=== PATIENT | male | born 1980 | race American Indian/Alaskan Native ===

== ENCOUNTER 2018-09-14 06:14 | Inpatient (IN) | payer OTHER ==
[2018-09-14] MEDS ORDERED: NACL 0.9% 1000 ML 1,000 ML IV ONE (06:18)
--- NOTE | 2018-09-14 06:30 | Emergency Department Report ---
Blank Doc - Documentation Documentation: 37 year old -British male presents to the emergency room for abdominal pain 8 out of 10 times one day. Patient reports nausea vomiting and had one episode of loose stool in the last 24 hours. Patient reports that he has a history of hypertension and pancreatitis. Patient has not had any blood pressure medications in the last 2 weeks. He denies any fever or chills. GENERAL APPEARANCE: Well developed, well nourished, in no acute distress. SKIN: Inspection of the skin reveals no rashes, ulcerations or petechiae. HEENT: The sclerae were anicteric and conjunctivae were pink and moist. Extraocular movements were intact and pupils were equal, round, and reactive to light with normal accommodation. External inspection of the ears and nose showed no scars, lesions, or masses. Lips, teeth, and gums showed normal mucosa. The oral mucosa, hard and soft palate, tongue and posterior pharynx were normal. LUNGS: Auscultation of the lungs revealed normal breath sounds without any other adventitious sounds or rubs. CARDIOVASCULAR: There was a regular rate and rhythm without any murmurs, gallops, rubs. ABDOMEN: Soft tenderness to epigastric with normal bowel sounds. EXTREMITIES: No cyanosis, clubbing or edema. NEUROLOGIC: Alert and oriented x 3. Normal affect. Gait was normal. This initial assessment diagnostic orders/clinical plan/treatment(s) is/are subject to change based on patient's health status, clinical progression and re- assessment by fellow clinical providers in the ED. Further treatment and workup at subsequent clinical providers discretion. Patient/guardians urged not to elope from ED s their condition may be serious if not clinically assessed and managed. Initial orders include: Abdominal protocol, morphine, Zofran, CT of abdomen and pelvis w/contrast and normal saline 1 L.
[2018-09-14] MEDS ORDERED: MORPHINE IV ONE (06:31)
[2018-09-14] MEDS ORDERED: ZOFRAN IV ONE ×2 (06:31→10:25)
[2018-09-14 06:50] LABS: Basophils # (Auto) 0.1 K/mm3 (0.0-0.1); Basophils % (Auto) 0.4 % (0.0-1.8); Eosinophils % (Auto) 0.1 % (0.0-4.3); Hematocrit 52.4 % (35.5-45.6); Hemoglobin 17.4 gm/dl (11.8-15.2); Lymphocytes % (Auto) 6.9 % (13.4-35.0); Mean Corpuscular HGB Conc 33 % (32-34); Mean Corpuscular Volume 88 fl (84-94); Monocytes % (Auto) 6.3 % (0.0-7.3); Platelet Count 223 K/mm3 (140-440); Red Blood Count 5.99 M/mm3 (3.65-5.03); Red Cell Distribution Width 14.4 % (13.2-15.2)
[2018-09-14 07:04] LABS: Bilirubin,Urine NEG (Negative); Blood,Urine NEG (Negative); Color,Urine Yellow (Yellow); Mucus,Urine 1+ /HPF; Urobilinogen,Urine < 2.0 mg/dL (<2.0)
[2018-09-14 07:21] LABS: Alanine Aminotransferase 52 units/L (7-56); Albumin 4.7 g/dL (3.9-5); BUN/Creatinine Ratio 13; Blood Urea Nitrogen 16 mg/dL (9-20); Calcium 9.2 mg/dL (8.4-10.2); Hemolysis Index 12
--- NOTE | 2018-09-14 07:46 | Emergency Department Report ---
<WENDY HANDY - Last Filed: 09/14/18 11:40> ED Abdominal Pain HPI - General Chief Complaint: Abdominal Pain Stated Complaint: ABD PAIN Time Seen by Provider: 09/14/18 06:24 - Related Data Home Medications Medication Instructions Recorded Confirmed Last Taken Lisinopril [Zestril] 20 mg PO QDAY 06/08/18 09/14/18 Unknown Allergies Allergy/AdvReac Type Severity Reaction Status Date / Time No Known Allergies Allergy Verified 06/08/18 05:44 ED Past Medical Hx - Medications Home Medications: Home Medications Medication Instructions Recorded Confirmed Last Taken Type Lisinopril [Zestril] 20 mg PO QDAY 06/08/18 09/14/18 Unknown History ED Medical Decision Making - Lab Data Result diagrams: 09/14/18 06:43 09/14/18 06:39 - Medical Decision Making I also evaluated Mr. Zepeda alongside my colleague Valentina. Mr. Zepeda has alcoholic pancreatitis after imbibing this weekend. He drank 1/2 bottle of liquor. he denies alcoholism. He has had hx of recurrent pancreatitis "too many times". CT confirmed acute pancreatitis diagnosis as well as lipase > 5 times normal limits. Elevated WBC evident. I recommended hospital admission. admitted to hospitalist service med/surg in stable condition ED Disposition Clinical Impression: Acute pancreatitis Qualifiers: Pancreatitis type: alcohol induced Disposition: OP ADMIT IP TO THIS HOSP Condition: Stable <SHARIF MCKENZIE - Last Filed: 09/14/18 18:43> ED Abdominal Pain HPI - General Source: patient Mode of arrival: Ambulatory Limitations: No Limitations - History of Present Illness Initial Comments: This is 37-year-old male with a history of hypertension and noncompliant with his medication present. Generalized abdominal pain with no radiation that started yesterday. Patient states that she eat any unusual foods. He denies fever assess chills/chest pain/dizziness or headache MD Complaint: abdominal pain -: Sudden Location: diffuse Radiation: none Migration to: no migration Severity: moderate Severity scale (0 -10): 5 Quality: aching Consistency: intermittent Improves With: nothing Worsens With: nothing Context: possible food poisoning Associated Symptoms: nausea, vomiting, diarrhea (1 episode) ED Review of Systems ROS: Stated complaint: ABD PAIN Other details as noted in HPI Comment: All other systems reviewed and negative ED Past Medical Hx - Past Medical History Previous Medical History?: Yes Hx Hypertension: Yes Additional medical history: pancreatitis. afib - Surgical History Past Surgical History?: No - Social History Smoking Status: Never Smoker ED Physical Exam - General Limitations: No Limitations General appearance: alert, in no apparent distress - Head Head exam: Present: atraumatic, normocephalic - Eye Eye exam: Present: normal appearance - ENT ENT exam: Present: mucous membranes moist - Neck Neck exam: Present: normal inspection - Respiratory Respiratory exam: Present: normal lung sounds bilaterally. Absent: respiratory distress - Cardiovascular Cardiovascular Exam: Present: regular rate, normal rhythm. Absent: systolic murmur, diastolic murmur, rubs, gallop - GI/Abdominal GI/Abdominal exam: Present: soft, normal bowel sounds. Absent: distended, tenderness, guarding, rebound - Rectal Rectal exam: Present: deferred - Extremities Exam Extremities exam: Present: normal inspection, full ROM - Back Exam Back exam: Present: normal inspection - Neurological Exam Neurological exam: Present: alert, oriented X3 - Psychiatric Psychiatric exam: Present: normal affect, normal mood - Skin Skin exam: Present: warm, dry, intact, normal color. Absent: rash ED Course Vital Signs 09/14/18 09/14/18 09/14/18 06:16 09:30 11:42 Temperature 98.9 F 98.4 F Pulse Rate 102 H 86 Respiratory 18 18 18 Rate Blood Pressure 150/103 141/89 [Right] O2 Sat by Pulse 96 99 96 Oximetry - Reevaluation(s) Reevaluation #1: 09/14/18 07:45 Patient is currently on 1 L of fluids, received 4 mg morphine and Zofran. Patient is laying down comfortably in the ED bed. He is in no acute distress CT scan pending ED Medical Decision Making - Lab Data Result diagrams: 09/14/18 06:43 09/14/18 06:39 Laboratory Last Values WBC 15.1 K/mm3 (4.5-11.0) H 09/14/18 06:43 RBC 5.99 M/mm3 (3.65-5.03) H 09/14/18 06:43 Hgb 17.4 gm/dl (11.8-15.2) H 09/14/18 06:43 Hct 52.4 % (35.5-45.6) H 09/14/18 06:43 MCV 88 fl (84-94) 09/14/18 06:43 MCH 29 pg (28-32) 09/14/18 06:43 MCHC 33 % (32-34) 09/14/18 06:43 RDW 14.4 % (13.2-15.2) 09/14/18 06:43 Plt Count 223 K/mm3 (140-440) 09/14/18 06:43 Lymph % (Auto) 6.9 % (13.4-35.0) L 09/14/18 06:43 [place] % (Auto) 6.3 % (0.0-7.3) 09/14/18 06:43 Eos % (Auto) 0.1 % (0.0-4.3) 09/14/18 06:43 Baso % (Auto) 0.4 % (0.0-1.8) 09/14/18 06:43 Lymph # 1.0 K/mm3 (1.2-5.4) L 09/14/18 06:43 [place] # 1.0 K/mm3 (0.0-0.8) H 09/14/18 06:43 Eos # 0.0 K/mm3 (0.0-0.4) 09/14/18 06:43 Baso # 0.1 K/mm3 (0.0-0.1) 09/14/18 06:43 Seg Neutrophils % 86.3 % (40.0-70.0) H 09/14/18 06:43 Seg Neutrophils # 13.0 K/mm3 (1.8-7.7) H 09/14/18 06:43 Sodium 139 mmol/L (137-145) 09/14/18 06:39 Potassium 3.8 mmol/L (3.6-5.0) 09/14/18 06:39 Chloride 98.9 mmol/L (98-107) 09/14/18 06:39 Carbon Dioxide 27 mmol/L (22-30) 09/14/18 06:39 Anion Gap 17 mmol/L 09/14/18 06:39 BUN 16 mg/dL (9-20) 09/14/18 06:39 Creatinine 1.2 mg/dL (0.8-1.5) 09/14/18 06:39 Estimated GFR > 60 ml/min 09/14/18 06:39 BUN/Creatinine Ratio 13 % 09/14/18 06:39 Glucose 155 mg/dL (75-100) H 09/14/18 06:39 Calcium 9.2 mg/dL (8.4-10.2) 09/14/18 06:39 Total Bilirubin 1.10 mg/dL (0.1-1.2) 09/14/18 06:39 AST 33 units/L (5-40) 09/14/18 06:39 ALT 52 units/L (7-56) 09/14/18 06:39 Alkaline Phosphatase 59 units/L (35-129) 09/14/18 06:39 Total Protein 7.7 g/dL (6.3-8.2) 09/14/18 06:39 Albumin 4.7 g/dL (3.9-5) 09/14/18 06:39 Albumin/Globulin Ratio 1.6 % 09/14/18 06:39 Lipase 479 units/L (13-60) H 09/14/18 06:39 Urine Color Yellow (Yellow) 09/14/18 06:55 Urine Turbidity Clear (Clear) 09/14/18 06:55 Urine pH 6.0 (5.0-7.0) 09/14/18 06:55 Ur Specific [place] 1.034 (1.003-1.030) H 09/14/18 06:55 Urine Protein 30 mg/dl mg/dL (Negative) 09/14/18 06:55 Urine Glucose (UA) Neg mg/dL (Negative) 09/14/18 06:55 Urine Ketones Tr mg/dL (Negative) 09/14/18 06:55 Urine Blood Neg (Negative) 09/14/18 06:55 Urine Nitrite Neg (Negative) 09/14/18 06:55 Urine Bilirubin Neg (Negative) 09/14/18 06:55 Urine Urobilinogen < 2.0 mg/dL (<2.0) 09/14/18 06:55 Ur Leukocyte Esterase Neg (Negative) 09/14/18 06:55 Urine WBC (Auto) 2.0 /HPF (0.0-6.0) 09/14/18 06:55 Urine RBC (Auto) 1.0 /HPF (0.0-6.0) 09/14/18 06:55 U Epithel Cells (Auto) < 1.0 /HPF (0-13.0) 09/14/18 06:55 Urine Mucus 1+ /HPF 09/14/18 06:55 - Radiology Data Radiology results: report reviewed, image reviewed FINDINGS: Lung bases: Normal. Liver: Mild diffuse fatty infiltration is noted throughout the liver. No enlargement or focal mass. Biliary system: Normal. Pancreas: Moderate inflammatory changes and mild fluid surrounds the pancreas consistent with acute pancreatitis. There is no obvious pancreatic mass or pseudocyst. Spleen: Normal. Kidneys/ureters/bladder: The kidneys are normal size, contour and position. There appeared to be 2 punctate stones in the mid to superior left kidney. 2 tiny millimetric cysts are noted in the right kidney. The ureters and bladder are unremarkable. Adrenal glands: Normal. Aorta: Normal. Intestines: Within normal limits given no oral contrast was administered. Appendix: Normal. Pelvic viscera: Normal. Ascites: Small peripancreatic fluid. Adenopathy: None. Musculoskeletal: Normal. IMPRESSION: Acute pancreatitis. Mild fatty infiltration of the liver. Tiny left renal stones, nonobstructing. Transcribed By: TTR Dictated By: MARGARET DOHERTY JR, MD Electronically Authenticated By: MARGARET DOHERTY JR, MD Signed Date/Time: 09/14/18 1106 Critical care attestation.: If time is entered above; I have spent that time in minutes in the direct care of this critically ill patient, excluding procedure time. ED Disposition Is pt being admited?: No Does the pt Need Aspirin: No
[2018-09-14] MEDS ORDERED: TORADOL IV ONE (10:09)
[2018-09-14] MEDS ORDERED: ZOFRAN IV NR (11:00)
--- NOTE | 2018-09-14 11:10 | Cat Scan Report ---
CT ABDOMEN PELVIS WITH CONTRAST: HISTORY: Abdominal pain, right upper quadrant pain, epigastric pain. COMPARISON: Noncontrast CT of abdomen and pelvis dated 06/08/18. TECHNIQUE: Helical CT in 1.25mm intervals following IV contrast. Sagittal and coronal reconstructions. FINDINGS: Lung bases: Normal. Liver: Mild diffuse fatty infiltration is noted throughout the liver. No enlargement or focal mass. Biliary system: Normal. Pancreas: Moderate inflammatory changes and mild fluid surrounds the pancreas consistent with acute pancreatitis. There is no obvious pancreatic mass or pseudocyst. Spleen: Normal. Kidneys/ureters/bladder: The kidneys are normal size, contour and position. There appeared to be 2 punctate stones in the mid to superior left kidney. 2 tiny millimetric cysts are noted in the right kidney. The ureters and bladder are unremarkable. Adrenal glands: Normal. Aorta: Normal. Intestines: Within normal limits given no oral contrast was administered. Appendix: Normal. Pelvic viscera: Normal. Ascites: Small peripancreatic fluid. Adenopathy: None. Musculoskeletal: Normal. IMPRESSION: Acute pancreatitis. Mild fatty infiltration of the liver. Tiny left renal stones, nonobstructing.
[2018-09-14 11:55] LABS: Bilirubin,Direct 0.3 mg/dL (0-0.2)
[2018-09-14] MEDS ORDERED: D5LR 1,000 ML IV SCH (12:00)
--- NOTE | 2018-09-14 14:28 | History and Physical Report ---
History of Present Illness Date of examination: 09/14/18 Date of admission: 09/14/18 11:37 Chief complaint: Abdominal pain since last night History of present illness: 37-year-old -[place] male with history of hypertension, hyperlipidemia and recurrent pancreatitis comes in for epigastric pain and vomiting since yesterday. Vomiting and pain started around 9 PM. Vomiting about 5 times. Last episode of vomiting was 3-4 hours ago. Abdominal pain is localized to the epigastric region and sharp in nature and intermittent. Pain is 8 on a scale of 1-10. Patient has 5 shots of vodka and 3 Motrins yesterday. Patient had 2 episodes of pancreatitis. One episode was in January 2018. And the second episode was in March 2018. This is the third episode. No fever or chills. No recent travel. Past Medical History Previous Medical History?: Yes Hypertension: Yes Recurrent Pancreatitis A Fib---Converted to NSR Surgical History Past Surgical History?: No Social History Smoking Status: Never Smoker Family history Htn Medications Home Medications: Home Medications Medication Instructions Recorded Confirmed Last Taken Type Aspirin [Adult Aspirin Regimen] 81 mg PO DAILY 06/08/18 06/08/18 Unknown History AtorvaSTATin [Lipitor] 40 mg PO QHS 06/08/18 06/08/18 Unknown History Diltiazem HCl [Cardizem LA] 180 mg PO DAILY 06/08/18 06/08/18 Unknown History Folic Acid [Folvite] 1 mg PO QDAY 06/08/18 06/08/18 Unknown History Lisinopril [Zestril] 20 mg PO QDAY 06/08/18 06/08/18 Unknown History oxyCODONE [Roxicodone TAB] 10 mg PO Q6H PRN #16 tablet 06/08/18 Unknown Rx Medications and Allergies Allergies Allergy/AdvReac Type Severity Reaction Status Date / Time No Known Allergies Allergy Verified 06/08/18 05:44 Home Medications Medication Instructions Recorded Confirmed Last Taken Type Lisinopril [Zestril] 20 mg PO QDAY 06/08/18 09/14/18 Unknown History Active Meds: Active Medications Dextrose/Lactated Ringer's (D5lr) 1,000 mls @ 150 mls/hr IV DIRECT AMBER Review of Systems All systems: negative Constitutional: no weight loss, no weight gain, no fever, no chills, no sweats, no night sweats Ears, nose, mouth and throat: no ear pain, no ear discharge, no tinnitis, no dec reased hearing, no nose pain Cardiovascular: no chest pain, no orthopnea, no palpitations, no rapid/irregular heart beat, no edema, no syncope, no lightheadedness, no shortness of breath Respiratory: no cough, no cough with sputum, no excessive sputum, no hemoptysis, no shortness of breath, no dyspnea on exertion Gastrointestinal: abdominal pain, nausea, vomiting, no diarrhea, no constipation, no change in bowel habits, no hematemesis, no coffee ground emesis, no BRBPR, no melena, no hematochezia, no loss of appetite, no early satiety, no heartburn, no indigestion, no belching Genitourinary Male: no dysuria, no hematuria, no flank pain, no discharge, no urinary frequency, no urinary hesitancy, no nocturia, no incontinence, no erectile dysfunction, no genital pain Musculoskeletal: no neck stiffness, no neck pain, no shooting arm pain, no arm numbness/tingling, no low back pain, no shooting leg pain, no leg numbness/tingling, no redness of joints Integumentary: no rash, no pruritis, no redness, no sores, no wounds, no jaundice, no boils, no blisters Neurological: no head injury, no transient paralysis, no paralysis, no weakness, no parathesias, no numbness, no tingling, no seizures, no syncope, no tremors, n o ataxia, no lack of coordination Psychiatric: no anxiety, no memory loss, no change in sleep habits, no sleep disturbances, no insomnia, no hypersomnia, no change in appetite, no change in libido, no suicidal ideation, no disorientation, no hallucinations Endocrine: no cold intolerance, no heat intolerance, no polyphagia, no excessive thirst, no polydipsia, no polyuria, no nocturia, no excessive sweating, no flushing, no weight change Hematologic/Lymphatic: no easy bruising, no easy bleeding Allergic/Immunologic: no urticaria, no allergic rhinitis, no wheezing Exam - Constitutional Vitals: Temp Pulse Resp BP Pulse Ox 98.4 F 86 18 141/89 96 09/14/18 11:42 09/14/18 11:42 09/14/18 11:42 09/14/18 11:42 09/14/18 11:42 General appearance: Present: no acute distress, well-nourished - EENT Eyes: Present: PERRL ENT: hearing intact, clear oral mucosa - Neck Neck: Present: supple, normal ROM - Respiratory Respiratory effort: normal Respiratory: bilateral: CTA - Cardiovascular Heart rate: 78 Rhythm: regular Heart Sounds: Present: S1 & S2. Absent: rub, click - Extremities Extremities: no ischemia, pulses intact, pulses symmetrical, No edema Peripheral Pulses: within normal limits - Abdominal General gastrointestinal: Present: soft, non-tender, non-distended, normal bowel sounds Localized gastrointestinal: tender: diffuse (No guarding No rebound) Male genitourinary: Present: normal, tender - Rectal Rectal Exam: deferred - Integumentary Integumentary: Present: clear, warm, dry - Musculoskeletal Musculoskeletal: gait normal, strength equal bilaterally - Psychiatric Psychiatric: appropriate mood/affect, intact judgment & insight - Neurologic Neurologic: CNII-XII intact, moves all extremities - Allied Health Allied health notes reviewed: nursing, case management Results - Labs CBC & Chem 7: 09/14/18 06:43 09/14/18 06:39 Labs: Laboratory Last Values WBC 15.1 K/mm3 (4.5-11.0) H 09/14/18 06:43 RBC 5.99 M/mm3 (3.65-5.03) H 09/14/18 06:43 Hgb 17.4 gm/dl (11.8-15.2) H 09/14/18 06:43 Hct 52.4 % (35.5-45.6) H 09/14/18 06:43 MCV 88 fl (84-94) 09/14/18 06:43 MCH 29 pg (28-32) 09/14/18 06:43 MCHC 33 % (32-34) 09/14/18 06:43 RDW 14.4 % (13.2-15.2) 09/14/18 06:43 Plt Count 223 K/mm3 (140-440) 09/14/18 06:43 Lymph % (Auto) 6.9 % (13.4-35.0) L 09/14/18 06:43 [place] % (Auto) 6.3 % (0.0-7.3) 09/14/18 06:43 Eos % (Auto) 0.1 % (0.0-4.3) 09/14/18 06:43 Baso % (Auto) 0.4 % (0.0-1.8) 09/14/18 06:43 Lymph # 1.0 K/mm3 (1.2-5.4) L 09/14/18 06:43 [place] # 1.0 K/mm3 (0.0-0.8) H 09/14/18 06:43 Eos # 0.0 K/mm3 (0.0-0.4) 09/14/18 06:43 Baso # 0.1 K/mm3 (0.0-0.1) 09/14/18 06:43 Seg Neutrophils % 86.3 % (40.0-70.0) H 09/14/18 06:43 Seg Neutrophils # 13.0 K/mm3 (1.8-7.7) H 09/14/18 06:43 Sodium 139 mmol/L (137-145) 09/14/18 06:39 Potassium 3.8 mmol/L (3.6-5.0) 09/14/18 06:39 Chloride 98.9 mmol/L (98-107) 09/14/18 06:39 Carbon Dioxide 27 mmol/L (22-30) 09/14/18 06:39 Anion Gap 17 mmol/L 09/14/18 06:39 BUN 16 mg/dL (9-20) 09/14/18 06:39 Creatinine 1.2 mg/dL (0.8-1.5) 09/14/18 06:39 Estimated GFR > 60 ml/min 09/14/18 06:39 BUN/Creatinine Ratio 13 % 09/14/18 06:39 Glucose 155 mg/dL (75-100) H 09/14/18 06:39 Calcium 9.2 mg/dL (8.4-10.2) 09/14/18 06:39 Total Bilirubin 1.10 mg/dL (0.1-1.2) 09/14/18 06:39 Direct Bilirubin 0.3 mg/dL (0-0.2) H 09/14/18 06:39 AST 33 units/L (5-40) 09/14/18 06:39 ALT 52 units/L (7-56) 09/14/18 06:39 Alkaline Phosphatase 59 units/L (35-129) 09/14/18 06:39 Total Protein 7.7 g/dL (6.3-8.2) 09/14/18 06:39 Albumin 4.7 g/dL (3.9-5) 09/14/18 06:39 Albumin/Globulin Ratio 1.6 % 09/14/18 06:39 Amylase 243 units/L (27-131) H 09/14/18 06:39 Lipase 479 units/L (13-60) H 09/14/18 06:39 Urine Color Yellow (Yellow) 09/14/18 06:55 Urine Turbidity Clear (Clear) 09/14/18 06:55 Urine pH 6.0 (5.0-7.0) 09/14/18 06:55 Ur Specific [place] 1.034 (1.003-1.030) H 09/14/18 06:55 Urine Protein 30 mg/dl mg/dL (Negative) 09/14/18 06:55 Urine Glucose (UA) Neg mg/dL (Negative) 09/14/18 06:55 Urine Ketones Tr mg/dL (Negative) 09/14/18 06:55 Urine Blood Neg (Negative) 09/14/18 06:55 Urine Nitrite Neg (Negative) 09/14/18 06:55 Urine Bilirubin Neg (Negative) 09/14/18 06:55 Urine Urobilinogen < 2.0 mg/dL (<2.0) 09/14/18 06:55 Ur Leukocyte Esterase Neg (Negative) 09/14/18 06:55 Urine WBC (Auto) 2.0 /HPF (0.0-6.0) 09/14/18 06:55 Urine RBC (Auto) 1.0 /HPF (0.0-6.0) 09/14/18 06:55 U Epithel Cells (Auto) < 1.0 /HPF (0-13.0) 09/14/18 06:55 Urine Mucus 1+ /HPF 09/14/18 06:55 Short CBC 09/14/18 Range/Units 06:43 WBC 15.1 H (4.5-11.0) K/mm3 Hgb 17.4 H (11.8-15.2) gm/dl Hct 52.4 H (35.5-45.6) % Plt Count 223 (140-440) K/mm3 BMP 09/14/18 06:39 Sodium 139 Potassium 3.8 Chloride 98.9 Carbon Dioxide 27 BUN 16 Creatinine 1.2 Glucose 155 H Calcium 9.2 Liver Function 09/14/18 09/14/18 Range/Units 06:39 06:39 Total Bilirubin 1.10 (0.1-1.2) mg/dL Direct Bilirubin 0.3 H (0-0.2) mg/dL AST 33 (5-40) units/L ALT 52 (7-56) units/L Alkaline Phosphatase 59 (35-129) units/L Albumin 4.7 (3.9-5) g/dL Urine 09/14/18 Range/Units 06:55 Urine Color Yellow (Yellow) Urine pH 6.0 (5.0-7.0) Ur Specific [place] 1.034 H (1.003-1.030) Urine Protein 30 mg/dl (Negative) mg/dL Urine Glucose (UA) Neg (Negative) mg/dL - Imaging and Cardiology CT scan - abdomen: report reviewed Imaging and Cardiology: CT Abdomen Pancreas: Moderate inflammatory changes and mild fluid surrounds the pancreas consistent with acute pancreatitis. There is no obvious pancreatic mass or pseudocyst. IMPRESSION: Acute pancreatitis. Mild fatty infiltration of the liver. Tiny left renal stones, nonobstructing. Assessment and Plan Advance Directives: Yes (Full code) VTE prophylaxis?: Chemical Plan of care discussed with patient/family: Yes - Patient Problems (1) Acute pancreatitis Current Visit: Yes Status: Acute Qualifiers: Pancreatitis type: alcohol induced Plan to address problem: NPo IV Fluids Amylase /Lipase Stop ETOH from now on Counselled TPN after 48 to 72 hrs Recurrent pancreatitis (2) EtOH dependence Current Visit: Yes Status: Chronic Qualifiers: Substance use status: uncomplicated Qualified Code(s): F10.20 - Alcohol dependence, uncomplicated Plan to address problem: CIWA protocol initiated (3) HTN (hypertension) Current Visit: Yes Status: Chronic Qualifiers: Hypertension type: essential hypertension Qualified Code(s): I10 - Essential (primary) hypertension Plan to address problem: Hold oral antihypertensives Catapress TTS patch initiated (4) HLD (hyperlipidemia) Current Visit: Yes Status: Chronic Qualifiers: Hyperlipidemia type: mixed hyperlipidemia Qualified Code(s): E78.2 - Mixed hyperlipidemia Plan to address problem: Hold statins for now (5) Polycythemia due to fall in plasma volume Current Visit: Yes Status: Acute Plan to address problem: IV fluids for now (6) DVT prophylaxis Current Visit: Yes Status: Acute Plan to address problem: On Lovenox and GI prophylaxis
[2018-09-14] MEDS ORDERED: NACL 0.9% 1000 ML IV ONE (14:48)
[2018-09-14] MEDS ORDERED: NACL 0.9% 1000 ML 1,000 ML ONE (14:53)
[2018-09-14] MEDS ORDERED: TYLENOL PO PRN (16:17)
[2018-09-14] MEDS ORDERED: PHENERGAN PR PRN (16:17)
[2018-09-14] MEDS ORDERED: REGLAN IV PRN (16:17)
[2018-09-14] MEDS ORDERED: ATIVAN IV PRN ×2 (17:16)
[2018-09-14] MEDS: ZOFRAN IV PRN ×2 (18:44→22:10)
[2018-09-14] MEDS: DILAUDID IV PRN ×2 (18:44→22:10)
[2018-09-14] MEDS: D5NS 1,000 ML IV SCH (22:10)
[2018-09-14] MEDS: SODIUM CHLORIDE FLUSH SYRINGE 10 ML IV SCH (22:10)
[2018-09-14] MEDS: LOVENOX SUB-Q SCH (22:10)
[2018-09-14] MEDS: PEPCID IV SCH (22:10)
[2018-09-15] MEDS: ZOFRAN IV PRN (02:15)
[2018-09-15] MEDS: DILAUDID IV PRN ×4 (02:16→20:49)
[2018-09-15] MEDS: D5NS 1,000 ML IV SCH ×3 (05:05→19:11)
[2018-09-15 05:42] LABS: Basophils % (Auto) 0.4 % (0.0-1.8); Eosinophils # (Auto) 0.1 K/mm3 (0.0-0.4); Eosinophils % (Auto) 1.3 % (0.0-4.3); Hematocrit 47.7 % (35.5-45.6); Hemoglobin 15.9 gm/dl (11.8-15.2); Lymphocytes # (Auto) 1.8 K/mm3 (1.2-5.4); Mean Corpuscular HGB Conc 33 % (32-34); Mean Corpuscular Volume 88 fl (84-94); Monocytes # (Auto) 0.8 K/mm3 (0.0-0.8); Monocytes % (Auto) 7.4 % (0.0-7.3); Platelet Count 203 K/mm3 (140-440); Red Cell Distribution Width 14.5 % (13.2-15.2)
[2018-09-15 06:04] LABS: Alanine Aminotransferase 29 units/L (7-56); BUN/Creatinine Ratio 9; Blood Urea Nitrogen 9 mg/dL (9-20); Calcium 8.4 mg/dL (8.4-10.2); Hemolysis Index 10
[2018-09-15] MEDS: SODIUM CHLORIDE FLUSH SYRINGE 10 ML IV SCH ×2 (10:33→21:20)
[2018-09-15] MEDS: PEPCID IV SCH ×2 (10:33→21:19)
--- NOTE | 2018-09-15 14:42 | Progress Note ---
Assessment and Plan Assessment and plan: 37-year-old -[place] male with history of hypertension, hyperlipidemia and recurrent pancreatitis comes in for epigastric pain and vomiting since the day prior to admission. Vomiting and pain started around 9 PM. Vomiting about 5 times. Last episode of vomiting was 3-4 hours ago. Abdominal pain is localized to the epigastric region and sharp in nature and intermittent. Pain is 8 on a scale of 1-10. Patient has 5 shots of vodka and 3 Motrins yesterday. Patient had 2 episodes of pancreatitis. One episode was in January 2018. And the second episode was in March 2018. This is the third episode. No fever or chills. No recent travel. Patient reports weekend alcohol binge. Denies any withdrawal symptoms if no use of alcohol CT Abdomen: IMPRESSION: Acute pancreatitis. Mild fatty infiltration of the liver. Tiny left renal stones, nonobstructing. Assessment Acute pancreatitis secondary to EtOH abuse EtOH use disorder Hypertension Hyperlipidemia pOLYCYTHEMIA Leukocytosis Plan Continue nothing by mouth for additional day Attempt clear liquids in a.m. Doubt gallstone contribution to this recurrent episode consistent with alcohol use Pain control Extensive counseling provided to the patient will need to quit alcohol use patient verbalized understanding 15 minutes spent on counseling Anticipated discharge instructions 24 to 48 hours DVT and GI prophylaxis Plan of care discussed with the patient in detail History Interval history: Patient seen and examined, still with abdominal pain, not tolerating PO at this time. Hospitalist Physical - Physical exam Narrative exam: VITAL SIGNS: Reviewed. GENERAL: The patient appeared well nourished and normally developed, Vital signs as documented. HEAD: No signs of head trauma. EYES: Pupils are equal. Extraocular motions intact. EARS: Hearing grossly intact. MOUTH: Oropharynx is normal. NECK: No adenopathy, no JVD. CHEST: Chest with clear breath sounds bilaterally. No wheezes, rales, or rhonchi. CARDIAC: Regular rate and rhythm. S1 and S2, without murmurs, gallops, or rubs. VASCULAR: No Edema. Peripheral pulses normal and equal in all extremities. ABDOMEN: Soft, generalized tenderness and non distended. No rebound or guarding, and no masses palpated. Bowel Sounds normal. MUSCULOSKELETAL: Good range of motion of all major joints. Extremities without clubbing, cyanosis or edema. NEUROLOGIC EXAM: Alert and oriented x 3 No focal sensory or strength deficits. Speech normal. Follows commands. PSYCHIATRIC: Mood normal. SKIN: No rash or lesions. - Constitutional Vitals: Temp Pulse Resp BP Pulse Ox 98.2 F 74 16 143/94 97 09/15/18 05:02 09/15/18 05:02 09/15/18 09:26 09/15/18 05:02 09/15/18 05:02 General appearance: Present: no acute distress, well-nourished Results - Labs CBC & Chem 7: 09/15/18 04:19 09/15/18 04:19 Labs: Laboratory Last Values WBC 10.4 K/mm3 (4.5-11.0) 09/15/18 04:19 RBC 5.40 M/mm3 (3.65-5.03) H 09/15/18 04:19 Hgb 15.9 gm/dl (11.8-15.2) H 09/15/18 04:19 Hct 47.7 % (35.5-45.6) H 09/15/18 04:19 MCV 88 fl (84-94) 09/15/18 04:19 MCH 29 pg (28-32) 09/15/18 04:19 MCHC 33 % (32-34) 09/15/18 04:19 RDW 14.5 % (13.2-15.2) 09/15/18 04:19 Plt Count 203 K/mm3 (140-440) 09/15/18 04:19 Lymph % (Auto) 17.0 % (13.4-35.0) 09/15/18 04:19 [place] % (Auto) 7.4 % (0.0-7.3) H 09/15/18 04:19 Eos % (Auto) 1.3 % (0.0-4.3) 09/15/18 04:19 Baso % (Auto) 0.4 % (0.0-1.8) 09/15/18 04:19 Lymph # 1.8 K/mm3 (1.2-5.4) 09/15/18 04:19 [place] # 0.8 K/mm3 (0.0-0.8) 09/15/18 04:19 Eos # 0.1 K/mm3 (0.0-0.4) 09/15/18 04:19 Baso # 0.0 K/mm3 (0.0-0.1) 09/15/18 04:19 Seg Neutrophils % 73.9 % (40.0-70.0) H 09/15/18 04:19 Seg Neutrophils # 7.7 K/mm3 (1.8-7.7) 09/15/18 04:19 Sodium 138 mmol/L (137-145) 09/15/18 04:19 Potassium 3.7 mmol/L (3.6-5.0) 09/15/18 04:19 Chloride 97.7 mmol/L (98-107) L 09/15/18 04:19 Carbon Dioxide 28 mmol/L (22-30) 09/15/18 04:19 Anion Gap 16 mmol/L 09/15/18 04:19 BUN 9 mg/dL (9-20) 09/15/18 04:19 Creatinine 1.0 mg/dL (0.8-1.5) 09/15/18 04:19 Estimated GFR > 60 ml/min 09/15/18 04:19 BUN/Creatinine Ratio 9 % 09/15/18 04:19 Glucose 119 mg/dL (75-100) H 09/15/18 04:19 Hemoglobin A1c 6.1 % (4-6) H 09/14/18 19:28 Calcium 8.4 mg/dL (8.4-10.2) 09/15/18 04:19 Total Bilirubin 0.80 mg/dL (0.1-1.2) 09/15/18 04:19 Direct Bilirubin 0.3 mg/dL (0-0.2) H 09/14/18 06:39 AST 16 units/L (5-40) 09/15/18 04:19 ALT 29 units/L (7-56) 09/15/18 04:19 Alkaline Phosphatase 50 units/L (35-129) 09/15/18 04:19 Total Protein 7.0 g/dL (6.3-8.2) 09/15/18 04:19 Albumin 4.0 g/dL (3.9-5) 09/15/18 04:19 Albumin/Globulin Ratio 1.3 % 09/15/18 04:19 Amylase 168 units/L (27-131) H 09/15/18 04:19 Lipase 389 units/L (13-60) H 09/15/18 04:19 Urine Color Yellow (Yellow) 09/14/18 06:55 Urine Turbidity Clear (Clear) 09/14/18 06:55 Urine pH 6.0 (5.0-7.0) 09/14/18 06:55 Ur Specific [place] 1.034 (1.003-1.030) H 09/14/18 06:55 Urine Protein 30 mg/dl mg/dL (Negative) 09/14/18 06:55 Urine Glucose (UA) Neg mg/dL (Negative) 09/14/18 06:55 Urine Ketones Tr mg/dL (Negative) 09/14/18 06:55 Urine Blood Neg (Negative) 09/14/18 06:55 Urine Nitrite Neg (Negative) 09/14/18 06:55 Urine Bilirubin Neg (Negative) 09/14/18 06:55 Urine Urobilinogen < 2.0 mg/dL (<2.0) 09/14/18 06:55 Ur Leukocyte Esterase Neg (Negative) 09/14/18 06:55 Urine WBC (Auto) 2.0 /HPF (0.0-6.0) 09/14/18 06:55 Urine RBC (Auto) 1.0 /HPF (0.0-6.0) 09/14/18 06:55 U Epithel Cells (Auto) < 1.0 /HPF (0-13.0) 09/14/18 06:55 Urine Mucus 1+ /HPF 09/14/18 06:55 Active Medications - Current Medications Current Medications: Generic Name Dose Route Start Last Admin Trade Name Freq PRN Reason Stop Dose Admin Acetaminophen 650 mg 09/14/18 16:17 Tylenol PO Q4H PRN Pain MILD(1-3)/Fever >100.5/PENALOZA Clonidine HCl 0.2 mg 09/21/18 10:00 Catapres-Tts Patch TD QWEEK AMBER Enoxaparin Sodium 40 mg 09/14/18 22:00 09/14/18 22:10 Lovenox SUB-Q 40 mg QDAY@2200 AMBER Administration Famotidine 20 mg 09/14/18 22:00 09/15/18 10:33 Pepcid IV 20 mg BID AMBER Administration Hydromorphone HCl 1 mg 09/15/18 11:53 Dilaudid IV Q3H PRN Pain , Severe (7-10) Dextrose/Sodium Chloride 1,000 mls @ 100 mls/hr 09/14/18 17:00 09/15/18 12:17 D5ns IV 100 mls/hr DIRECT AMBER Administration Lorazepam 2 mg 09/14/18 17:16 Ativan IV Q1H PRN CIWA-Ar 8-15 Lorazepam 4 mg 09/14/18 17:16 Ativan IV Q1H PRN CIWA-Ar 16-25 Metoclopramide HCl 10 mg 09/14/18 16:17 Reglan IV Q6H PRN Nausea And Vomiting Ondansetron HCl 4 mg 09/14/18 16:17 09/15/18 02:15 Zofran IV 4 mg Q3H PRN Administration Nausea And Vomiting Promethazine HCl 25 mg 09/14/18 16:17 Phenergan GA Q6H PRN N/V IF NPO AND NO IV ACCESS Sodium Chloride 10 ml 09/14/18 22:00 09/15/18 10:33 Sodium Chloride Flush Syringe 10 Ml IV 10 ml BID AMBER Administration Sodium Chloride 10 ml 09/14/18 16:17 Sodium Chloride Flush Syringe 10 Ml IV PRN PRN LINE FLUSH
[2018-09-15] MEDS: SODIUM CHLORIDE FLUSH SYRINGE 10 ML IV PRN (20:50)
[2018-09-15] MEDS: LOVENOX SUB-Q SCH (21:19)
[2018-09-16] MEDS: SODIUM CHLORIDE FLUSH SYRINGE 10 ML IV PRN (01:59)
[2018-09-16] MEDS: DILAUDID IV PRN ×2 (02:00→08:08)
[2018-09-16] MEDS: D5NS 1,000 ML IV SCH (05:15)
[2018-09-16 07:14] LABS: Alanine Aminotransferase 24 units/L (7-56); Albumin 3.8 g/dL (3.9-5); BUN/Creatinine Ratio 7; Blood Urea Nitrogen 6 mg/dL (9-20); Calcium 8.5 mg/dL (8.4-10.2); Hemolysis Index 15
[2018-09-16] MEDS: SODIUM CHLORIDE FLUSH SYRINGE 10 ML IV SCH (11:03)
[2018-09-16] MEDS: PEPCID IV SCH (11:03)
--- NOTE | 2018-09-16 11:27 | Discharge Summary ---
Providers - Providers Date of Admission: 09/14/18 11:37 Attending physician: ZEE DRAKE MD 09/14/18 Consult to Case Management [CONS] Routine Services Needed at Discharge: Scientific Software Developer Notified:: braden Primary care physician: FOUNDRY TECHNICIAN Hospitalization Reason for admission: panctreatits Condition: Stable Hospital course: 37-year-old -[place]wegian male with history of hypertension, hyperlipidemia and recurrent pancreatitis comes in for epigastric pain and vomiting since the day prior to admission. Vomiting and pain started around 9 PM. Vomiting about 5 times. Last episode of vomiting was 3-4 hours ago. Abdominal pain is localized to the epigastric region and sharp in nature and intermittent. Pain is 8 on a scale of 1-10. Patient has 5 shots of vodka and 3 Motrins yesterday. Patient had 2 episodes of pancreatitis. One episode was in January 2018. And the second episode was in March 2018. This is the third episode. No fever or chills. No recent travel. Patient reports weekend alcohol binge. Denies any withdrawal symptoms if no use of alcohol. Patient was treated with Bowel rest and subsequently transitioned to full liquid prior to discharge. He verbalized understanding of counselling to quit etoh and the risk associated with continued etoh use. he is also advised to follow with his pcp and GI [facility] pcp choice. [facility] Ab[facility]en: IMPRESSION: Acute pancreatitis. Mild fatty infiltration of the liver. Tiny left renal stones, nonobstructing. Assessment Acute pancreatitis secondary to EtOH abuse EtOH use disorder Hypertension Hyperlipidemia pOLYCYTHEMIA Leukocytosis Disposition: -01 TO HOME OR SELFCARE Time spent for discharge: 35 mins Core Measure Documentation - Palliative Care Palliative Care/ Comfort Measures: Not Applicable - Core Measures Any of the following diagnoses?: none Exam - Physical Exam Narrative exam: VITAL SIGNS: Reviewed. GENERAL: The patient appeared well nourished and normally developed, Vital signs as documented. HEAD: No signs of head trauma. EYES: Pupils are equal. Extraocular motions intact. EARS: Hearing grossly intact. MOUTH: Oropharynx is normal. NECK: No adenopathy, no JVD. CHEST: Chest with clear breath sounds bilaterally. No wheezes, rales, or rhonchi. CARDIAC: Regular rate and rhythm. S1 and S2, without murmurs, gallops, or rubs. VASCULAR: No Edema. Peripheral pulses normal and equal in all extremities. ABDOMEN: Soft, non tender and non distended. No rebound or guarding, and no masses palpated. Bowel Sounds normal. MUSCULOSKELETAL: Good range of motion of all major joints. Extremities without clubbing, cyanosis or edema. NEUROLOGIC EXAM: Alert and oriented x 3 No focal sensory or strength deficits. Speech normal. Follows commands. PSYCHIATRIC: Mood normal. SKIN: No rash or lesions. - Constitutional Vitals: Temp Pulse Resp BP Pulse Ox 98.0 F 63 18 146/97 98 09/16/18 04:42 09/16/18 04:42 09/16/18 04:42 09/16/18 04:42 09/16/18 04:42 Plan Activity: advance as tolerated, fall precautions Diet: low fat Special Instructions: smoking cessation, other (must quit alcohol) Follow up with: FLOYD DUARTEFERRIS MD SALO [Referring] - 3-5 Days Prescriptions: Folic Acid 0.4 mg PO QDAY #30 tablet oxyCODONE /ACETAMINOPHEN [Percocet 5/325] 1 tab PO Q6HR PRN #14 tablet PRN Reason: Pain Thiamine HCl [Vitamin B-1] 100 mg PO DAILY #30 tablet
[2018-09-16 11:48] VITALS: BP 132/88
[2018-09-21] MEDS ORDERED: CATAPRES-TTS PATCH TD SCH (10:00)
== END 2018-09-16 16:16 | disposition home or self-care (01) | DRG 440 ==
LOC: ED 06:14 → 3A 11:37
PROVIDERS: ADMIT Internal Medicine; ATTEND Internal Medicine
DX: K85.20 Alcohol induced acute pancreatitis without necrosis or infection (principal); I10 Essential (primary) hypertension; K76.0 Fatty (change of) liver, not elsewhere classified; N20.0 Calculus of kidney; D75.1 Secondary polycythemia; I48.91 Unspecified atrial fibrillation; Z82.49 Family history of ischemic heart disease and other diseases of the circulatory system; F10.20 Alcohol dependence, uncomplicated; E78.2 Mixed hyperlipidemia
CPT/HCPCS: 36415; 74177; 80053; 81001; 82150; 82248; 83036; 83690; 85025; 87116; G0378; J1170; J1650; J1885; J2270; J2405; J7030; J7042; J7121; Q9967

== ENCOUNTER 2018-12-06 21:03 | Emergency (ER) | payer SELFPAY ==
[2018-12-06 21:48] LABS: Alanine Aminotransferase 37 units/L (7-56); Albumin 4.3 g/dL (3.9-5); BUN/Creatinine Ratio 9; Basophils # (Auto) 0.1 K/mm3 (0.0-0.1); Basophils % (Auto) 0.7 % (0.0-1.8); Blood Urea Nitrogen 11 mg/dL (9-20); Calcium 9.6 mg/dL (8.4-10.2); Eosinophils # (Auto) 0.2 K/mm3 (0.0-0.4); Eosinophils % (Auto) 1.5 % (0.0-4.3); Hematocrit 52.6 % (35.5-45.6); Hemoglobin 17.5 gm/dl (11.8-15.2); Hemolysis Index 46; Lymphocytes # (Auto) 2.4 K/mm3 (1.2-5.4); Lymphocytes % (Auto) 21.9 % (13.4-35.0); Mean Corpuscular HGB Conc 33 % (32-34); Mean Corpuscular Volume 89 fl (84-94); Monocytes # (Auto) 0.8 K/mm3 (0.0-0.8); Platelet Count 237 K/mm3 (140-440); Red Blood Count 5.92 M/mm3 (3.65-5.03); Red Cell Distribution Width 14.4 % (13.2-15.2)
[2018-12-06 22:15] LABS: Bacteria,Urine 1+ /HPF (Negative); Bilirubin,Urine NEG (Negative); Blood,Urine NEG (Negative); Color,Urine Yellow (Yellow); Mucus,Urine 1+ /HPF; Urobilinogen,Urine < 2.0 mg/dL (<2.0)
[2018-12-06 23:19] LABS: Basophils # (Auto) 0.1 K/mm3 (0.0-0.1); Basophils % (Auto) 0.8 % (0.0-1.8); Eosinophils # (Auto) 0.1 K/mm3 (0.0-0.4); Eosinophils % (Auto) 1.1 % (0.0-4.3); Hemoglobin 17.8 gm/dl (11.8-15.2); Lymphocytes # (Auto) 2.5 K/mm3 (1.2-5.4); Lymphocytes % (Auto) 22.6 % (13.4-35.0); Mean Corpuscular HGB Conc 35 % (32-34); Mean Corpuscular Volume 88 fl (84-94); Monocytes # (Auto) 0.6 K/mm3 (0.0-0.8); Monocytes % (Auto) 5.5 % (0.0-7.3); Platelet Count 228 K/mm3 (140-440); Red Blood Count 5.79 M/mm3 (3.65-5.03); Red Cell Distribution Width 14.1 % (13.2-15.2)
[2018-12-06] MEDS ORDERED: ALUM-MAG HYDROX-SIMETH 200-200-20MG/5ML PO ONE (23:42)
[2018-12-06] MEDS ORDERED: MORPHINE IV ONE (23:42)
[2018-12-06] MEDS ORDERED: LIDOCAINE VISCOUS 2% PO ONE (23:43)
--- NOTE | 2018-12-06 23:46 | Emergency Department Report ---
ED Abdominal Pain HPI - General Chief Complaint: Abdominal Pain Stated Complaint: PANCREAS PAIN ABD BACK Time Seen by Provider: 12/06/18 23:38 Source: patient Mode of arrival: Ambulatory Limitations: No Limitations - History of Present Illness Initial Comments: 38-year-old male presents to the ED with complaint of abdominal pain 2 days. Patient states pain is epigastric, burning in nature, and radiates diffusely throughout her abdomen. Reports history of alcoholic pancreatitis. States he drank 2 days prior to onset of the pain. He reports associated nausea and vomiting, however states he is able been able to drink liquids without vomiting today. MD Complaint: abdominal pain -: days(s) (2) Location: epigastric Radiation: other (diffuse abdomen) Migration to: no migration Severity: moderate Quality: burning Consistency: intermittent Improves With: nothing Worsens With: eating Associated Symptoms: nausea, vomiting. denies: diarrhea - Related Data Home Medications Medication Instructions Recorded Confirmed Last Taken Lisinopril [Zestril TAB] 20 mg PO QDAY 06/08/18 09/14/18 Unknown Previous Rx's Medication Instructions Recorded Last Taken Type Folic Acid 0.4 mg PO QDAY #30 tablet 09/16/18 Unknown Rx Thiamine HCl [Vitamin B-1] 100 mg PO DAILY #30 tablet 09/16/18 Unknown Rx oxyCODONE /ACETAMINOPHEN [Percocet 1 tab PO Q6HR PRN #14 tablet 09/16/18 Unknown Rx 5/325] Dicyclomine [Bentyl] 20 mg PO QID PRN #20 tablet 12/07/18 Unknown Rx Ondansetron [Zofran Odt] 4 mg PO Q8HR PRN #20 tab.rapdis 12/07/18 Unknown Rx Allergies Allergy/AdvReac Type Severity Reaction Status Date / Time No Known Allergies Allergy Verified 06/08/18 05:44 ED Review of Systems ROS: Stated complaint: PANCREAS PAIN ABD BACK Other details as noted in HPI Comment: All other systems reviewed and negative Constitutional: denies: chills, fever Gastrointestinal: abdominal pain, nausea, vomiting. denies: diarrhea ED Past Medical Hx - Past Medical History Previous Medical History?: Yes Hx Hypertension: Yes Hx HIV: No Additional medical history: pancreatitis. afib - Surgical History Past Surgical History?: No - Social History Smoking Status: Never Smoker Substance Use Type: Alcohol - Medications Home Medications: Home Medications Medication Instructions Recorded Confirmed Last Taken Type Lisinopril [Zestril TAB] 20 mg PO QDAY 06/08/18 09/14/18 Unknown History Folic Acid 0.4 mg PO QDAY #30 tablet 09/16/18 Unknown Rx Thiamine HCl [Vitamin B-1] 100 mg PO DAILY #30 tablet 09/16/18 Unknown Rx oxyCODONE /ACETAMINOPHEN [Percocet 1 tab PO Q6HR PRN #14 tablet 09/16/18 Unknown Rx 5/325] Dicyclomine [Bentyl] 20 mg PO QID PRN #20 tablet 12/07/18 Unknown Rx Ondansetron [Zofran Odt] 4 mg PO Q8HR PRN #20 tab.rapdis 12/07/18 Unknown Rx ED Physical Exam - General Limitations: No Limitations General appearance: alert, in no apparent distress - Head Head exam: Present: atraumatic, normocephalic - Eye Eye exam: Present: normal appearance - ENT ENT exam: Present: mucous membranes moist - Neck Neck exam: Present: normal inspection - Respiratory Respiratory exam: Present: normal lung sounds bilaterally. Absent: respiratory distress - Cardiovascular Cardiovascular Exam: Present: normal rhythm, tachycardia - GI/Abdominal GI/Abdominal exam: Present: soft. Absent: distended, tenderness - Extremities Exam Extremities exam: Present: normal inspection - Neurological Exam Neurological exam: Present: alert, oriented X3 - Psychiatric Psychiatric exam: Present: normal affect, normal mood - Skin Skin exam: Present: warm, dry, intact, normal color ED Course Vital Signs 12/06/18 12/06/18 12/06/18 21:09 21:10 22:38 Temperature 99.6 F 99.6 F Pulse Rate 111 H 110 H 95 H Respiratory 18 18 11 L Rate Blood Pressure 149/101 149/101 Blood Pressure [Right] O2 Sat by Pulse 98 98 99 Oximetry 12/06/18 12/07/18 12/07/18 23:42 00:20 00:50 Temperature Pulse Rate Respiratory 20 20 16 Rate Blood Pressure Blood Pressure [Right] O2 Sat by Pulse 98 Oximetry 12/07/18 02:31 Temperature Pulse Rate 103 H Respiratory 16 Rate Blood Pressure Blood Pressure 134/96 [Right] O2 Sat by Pulse Oximetry ED Medical Decision Making - Lab Data Result diagrams: 12/06/18 22:50 12/06/18 22:50 - Differential Diagnosis alcoholic pancreatitis Critical care attestation.: If time is entered above; I have spent that time in minutes in the direct care of this critically ill patient, excluding procedure time. ED Disposition Clinical Impression: Acute pancreatitis Disposition: TO HOME OR SELFCARE Is pt being admited?: No Condition: Stable Instructions: Pancreatitis (ED), Clear Liquid Diet (ED) Prescriptions: Dicyclomine [Bentyl] 20 mg PO QID PRN #20 tablet PRN Reason: abdominal pain Ondansetron [Zofran Odt] 4 mg PO Q8HR PRN #20 tab.rapdis PRN Reason: Vomiting Referrals: SAURAV BAIRD MD [Primary Care Provider] - 3-5 Days Forms: Work/School Release Form(ED) Time of Disposition: 00:32
[2018-12-06 23:53] LABS: Alanine Aminotransferase 39 units/L (7-56); Albumin 4.4 g/dL (3.9-5); BUN/Creatinine Ratio 9; Blood Urea Nitrogen 11 mg/dL (9-20); Calcium 9.8 mg/dL (8.4-10.2); Hemolysis Index 62
[2018-12-07 02:32] VITALS: BP 134/96
== END 2018-12-07 02:31 | disposition home or self-care (01) ==
LOC: ED 21:03
DX: K85.90 Acute pancreatitis without necrosis or infection, unspecified (principal); I10 Essential (primary) hypertension
CPT/HCPCS: 36415; 80053; 81001; 83690; 85025; 96374; 99283; J2270

== ENCOUNTER 2019-03-04 11:38 | Inpatient (IN) | payer OTHER ==
--- NOTE | 2019-03-04 11:46 | Event Note ---
ED Screening Note Date of service: 03/04/19 Time: 11:44 ED Screening Note: This is 38 y.o. M. that presents to the ER with diffuse abdominal pain and vomiting x 2 days. Reports history of pancreatitis. This initial assessment/diagnostic orders/clinical plan/treatment(s) is/are subject to change based on patients health status, clinical progression and re- assessment by fellow clinical providers in the ED. Further treatment and workup at subsequent clinical providers discretion. Patient/guardian urged not to elope from the ED as their condition may be serious if not clinically assessed and managed. Initial orders include: Labs and CT of abdomen and pelvis
[2019-03-04] MEDS ORDERED: PEPCID IV ONE (11:58)
[2019-03-04] MEDS ORDERED: NACL 0.9% 1000 ML 1,000 ML IV ONE ×4 (11:58→18:29)
[2019-03-04] MEDS ORDERED: ZOFRAN IV ONE ×3 (11:58→18:29)
--- NOTE | 2019-03-04 12:13 | Emergency Department Report ---
<LACI MANDUJANO - Last Filed: 03/04/19 17:21> ED Abdominal Pain HPI - General Chief Complaint: Abdominal Pain Stated Complaint: DEHYDRATED/PANCREATITIS/PAIN Time Seen by Provider: 03/04/19 11:44 Source: patient Mode of arrival: Ambulatory Limitations: No Limitations - History of Present Illness Initial Comments: 39-year-old male with a past medical history of hypertension and pancreatitis secondary to EtOH abuse presents to the hospital with complaints of epigastric pain with vomiting since last night. Patient has had about 3 episodes of vomiting. He had diarrhea 2 days ago but stools have been normal since. He saw specks of blood in his vomit. Denies elena hematemesis, hematochezia, melena, fever, or previous abdominal surgeries. Patient states he took a Goody's powder for pain is symptoms worsen. Last alcohol drink was one month ago. Patient is not currently taking any medications. - Related Data Home Medications Medication Instructions Recorded Confirmed Last Taken Lisinopril [Zestril TAB] 20 mg PO QDAY 06/08/18 09/14/18 Unknown Previous Rx's Medication Instructions Recorded Last Taken Type Folic Acid 0.4 mg PO QDAY #30 tablet 09/16/18 Unknown Rx Thiamine HCl [Vitamin B-1] 100 mg PO DAILY #30 tablet 09/16/18 Unknown Rx oxyCODONE /ACETAMINOPHEN [Percocet 1 tab PO Q6HR PRN #14 tablet 09/16/18 Unknown Rx 5/325] Dicyclomine [Bentyl] 20 mg PO QID PRN #20 tablet 12/07/18 Unknown Rx Ondansetron [Zofran Odt] 4 mg PO Q8HR PRN #20 tab.rapdis 12/07/18 Unknown Rx Allergies Allergy/AdvReac Type Severity Reaction Status Date / Time No Known Allergies Allergy Verified 06/08/18 05:44 ED Review of Systems Comment: All other systems reviewed and negative ED Past Medical Hx - Past Medical History Previous Medical History?: Yes Hx Hypertension: Yes Hx HIV: No Additional medical history: pancreatitis. afib - Surgical History Past Surgical History?: No - Social History Smoking Status: Never Smoker Substance Use Type: Alcohol - Medications Home Medications: Home Medications Medication Instructions Recorded Confirmed Last Taken Type Lisinopril [Zestril TAB] 20 mg PO QDAY 06/08/18 09/14/18 Unknown History Folic Acid 0.4 mg PO QDAY #30 tablet 09/16/18 Unknown Rx Thiamine HCl [Vitamin B-1] 100 mg PO DAILY #30 tablet 09/16/18 Unknown Rx oxyCODONE /ACETAMINOPHEN [Percocet 1 tab PO Q6HR PRN #14 tablet 09/16/18 Unknown Rx 5/325] Dicyclomine [Bentyl] 20 mg PO QID PRN #20 tablet 12/07/18 Unknown Rx Ondansetron [Zofran Odt] 4 mg PO Q8HR PRN #20 tab.rapdis 12/07/18 Unknown Rx ED Physical Exam - General Limitations: No Limitations - Other Other exam information: Gen.: No acute distress Head: Atraumatic Eyes: Normal appearance ENT: Moist mucous membranes Neck: Normal appearance, no posterior midline tenderness, no meningismus Chest: Clear to auscultation bilaterally Cardiovascular: Regular rate and rhythm Abdomen: Normal appearance, soft, epigastric tenderness, no rebound or guarding, normal bowel sounds Back: Normal appearance, nontender Extremity: Full range of motion, normal appearance Neuro: Alert oriented 3, clear speech, no focal motor or sensory deficit Psychiatric: Appropriate Skin: No rash ED Course - Reevaluation(s) Reevaluation #1: 03/04/19 17:22 Patient improving at this time. Additional pain medicine and IV fluids prov ided. Nausea has improved. Patient may be discharged if tolerating by mouth and pain is controlled otherwise case signed out to Alireza to admit to hospitalist if symptoms persist ED Medical Decision Making - Lab Data Result diagrams: 03/04/19 12:00 03/04/19 12:00 Lab Results 03/04/19 03/04/19 03/04/19 Range/Units 12:00 12:00 12:00 WBC 12.7 H (4.5-11.0) K/mm3 RBC 5.53 H (3.65-5.03) M/mm3 Hgb 16.3 H (11.8-15.2) gm/dl Hct 48.9 H (35.5-45.6) % MCV 88 (84-94) fl MCH 29 (28-32) pg MCHC 33 (32-34) % RDW 13.9 (13.2-15.2) % Plt Count 185 (140-440) K/mm3 Lymph % (Auto) 11.9 L (13.4-35.0) % [place] % (Auto) 5.1 (0.0-7.3) % Eos % (Auto) 0.9 (0.0-4.3) % Baso % (Auto) 0.6 (0.0-1.8) % Lymph # 1.5 (1.2-5.4) K/mm3 [place] # 0.6 (0.0-0.8) K/mm3 Eos # 0.1 (0.0-0.4) K/mm3 Baso # 0.1 (0.0-0.1) K/mm3 Seg Neutrophils % 81.5 H (40.0-70.0) % Seg Neutrophils # 10.3 H (1.8-7.7) K/mm3 Sodium 136 L (137-145) mmol/L Potassium 3.6 (3.6-5.0) mmol/L Chloride 96.2 L (98-107) mmol/L Carbon Dioxide 26 (22-30) mmol/L Anion Gap 17 mmol/L BUN 10 (9-20) mg/dL Creatinine 1.1 (0.8-1.5) mg/dL Estimated GFR > 60 ml/min BUN/Creatinine Ratio 9 % Glucose 130 H (75-100) mg/dL Calcium 9.2 (8.4-10.2) mg/dL Magnesium (1.7-2.3) mg/dL Total Bilirubin 0.50 (0.1-1.2) mg/dL AST 18 (5-40) units/L ALT 23 (7-56) units/L Alkaline Phosphatase 64 (35-129) units/L Total Protein 7.5 (6.3-8.2) g/dL Albumin 4.3 (3.9-5) g/dL Albumin/Globulin Ratio 1.3 % Lipase 719 H (13-60) units/L Urine Color (Yellow) Urine Turbidity (Clear) Urine pH (5.0-7.0) Ur Specific [place] (1.003-1.030) Urine Protein (Negative) mg/dL Urine Glucose (UA) (Negative) mg/dL Urine Ketones (Negative) mg/dL Urine Blood (Negative) Urine Nitrite (Negative) Urine Bilirubin (Negative) Urine Urobilinogen (<2.0) mg/dL Ur Leukocyte Esterase (Negative) Urine WBC (Auto) (0.0-6.0) /HPF Urine RBC (Auto) (0.0-6.0) /HPF U Epithel Cells (Auto) (0-13.0) /HPF Urine Bacteria (Auto) (Negative) /HPF Urine Mucus /HPF 03/04/19 03/04/19 Range/Units 12:00 12:09 WBC (4.5-11.0) K/mm3 RBC (3.65-5.03) M/mm3 Hgb (11.8-15.2) gm/dl Hct (35.5-45.6) % MCV (84-94) fl MCH (28-32) pg MCHC (32-34) % RDW (13.2-15.2) % Plt Count (140-440) K/mm3 Lymph % (Auto) (13.4-35.0) % [place] % (Auto) (0.0-7.3) % Eos % (Auto) (0.0-4.3) % Baso % (Auto) (0.0-1.8) % Lymph # (1.2-5.4) K/mm3 [place] # (0.0-0.8) K/mm3 Eos # (0.0-0.4) K/mm3 Baso # (0.0-0.1) K/mm3 Seg Neutrophils % (40.0-70.0) % Seg Neutrophils # (1.8-7.7) K/mm3 Sodium (137-145) mmol/L Potassium (3.6-5.0) mmol/L Chloride (98-107) mmol/L Carbon Dioxide (22-30) mmol/L Anion Gap mmol/L BUN (9-20) mg/dL Creatinine (0.8-1.5) mg/dL Estimated GFR ml/min BUN/Creatinine Ratio % Glucose (75-100) mg/dL Calcium (8.4-10.2) mg/dL Magnesium 1.60 L (1.7-2.3) mg/dL Total Bilirubin (0.1-1.2) mg/dL AST (5-40) units/L ALT (7-56) units/L Alkaline Phosphatase (35-129) units/L Total Protein (6.3-8.2) g/dL Albumin (3.9-5) g/dL Albumin/Globulin Ratio % Lipase (13-60) units/L Urine Color [place]mit[place] (Yellow) Urine Turbidity Clear (Clear) Urine pH 6.0 (5.0-7.0) Ur Specific [place] 1.041 H (1.003-1.030) Urine Protein 100 mg/dl (Negative) mg/dL Urine Glucose (UA) Neg (Negative) mg/dL Urine Ketones Tr (Negative) mg/dL Urine Blood Neg (Negative) Urine Nitrite Neg (Negative) Urine Bilirubin Neg (Negative) Urine Urobilinogen < 2.0 (<2.0) mg/dL Ur Leukocyte Esterase Neg (Negative) Urine WBC (Auto) 3.0 (0.0-6.0) /HPF Urine RBC (Auto) 4.0 (0.0-6.0) /HPF U Epithel Cells (Auto) < 1.0 (0-13.0) /HPF Urine Bacteria (Auto) 1+ (Negative) /HPF Urine Mucus 3+ /HPF - Radiology Data Radiology results: report reviewed CT ABDOMEN AND PELVIS WITH CONTRAST HISTORY: epigastric pain n,v, hx of pancreatitis COMPARISON: 09/14/2018 TECHNIQUE: Axial CT images were obtained through the abdomen and pelvis after 100 cc of Omnipaque 300 intravenously. Sagittal and coronal reformatted images. All CT scans at this location are performed using CT dose reduction for ALARA by means of automated exposure control. FINDINGS: CT ABDOMEN: Lung Bases: Clear. Liver: Mild diffuse fatty infiltration. Biliary: No significant abnormality. Spleen: No significant abnormality. Unenlarged. Pancreas: The pancreas is mildly edematous. There is mild fluid surrounding the pancreas and extending into the left and right anterior pararenal spaces. There is a small fluid collection anterior to the pancreatic tail measuring up to 3 cm which may represent a pseudocyst. Adrenals: No significant abnormality. Kidneys: No significant abnormality. Lymphatics: No lymphadenopathy. Vasculature: No significant abnormality. Bowel/Peritoneum: No significant abnormality. No free air. No free fluid. Normal appendix CT PELVIS: : No significant abnormality. Osseous Structures: No significant abnormality. Additional Findings: None IMPRESSION: Findings consistent with acute pancreatitis. Mild hepatic steatosis. - Differential Diagnosis pancreatitis, gastritis, dehydration, viral syndrome, biliary colic Critical Care Time: No ED Disposition Clinical Impression: Acute pancreatitis Disposition: DC-09 OP ADMIT IP TO THIS HOSP Is pt being admited?: No Does the pt Need Aspirin: No Condition: Stable Instructions: Pancreatitis (ED) Additional Instructions: Take the medication as prescribed. Follow-up with your doctor or with the doctor/clinic provided. Return if symptoms worsen as indicated by your discharge instructions. Referrals: PRIMARY CARE, [Primary Care Provider] - 3-5 Days [facility] [Provider Group] - 3-5 Days <PORTILLO JACKSON - Last Filed: 03/04/19 19:28> ED Review of Systems ROS: Stated complaint: DEHYDRATED/PANCREATITIS/PAIN Other details as noted in HPI ED Course Vital Signs 03/04/19 11:44 Temperature 97.6 F Pulse Rate 91 H Respiratory 16 Rate Blood Pressure 167/95 O2 Sat by Pulse 98 Oximetry - Reevaluation(s) Reevaluation #2: 03/04/19 18:[address] Higginbotham regarding patient's retractable abdominal pain. ED Medical Decision Making - Lab Data Result diagrams: 03/04/19 12:00 03/04/19 12:00 Critical care attestation.: If time is entered above; I have spent that time in minutes in the direct care of this critically ill patient, excluding procedure time. ED Disposition Is pt being admited?: Yes Does the pt Need Aspirin: No
[2019-03-04 12:20] LABS: Basophils # (Auto) 0.1 K/mm3 (0.0-0.1); Basophils % (Auto) 0.6 % (0.0-1.8); Eosinophils # (Auto) 0.1 K/mm3 (0.0-0.4); Eosinophils % (Auto) 0.9 % (0.0-4.3); Hematocrit 48.9 % (35.5-45.6); Hemoglobin 16.3 gm/dl (11.8-15.2); Lymphocytes # (Auto) 1.5 K/mm3 (1.2-5.4); Lymphocytes % (Auto) 11.9 % (13.4-35.0); Mean Corpuscular HGB Conc 33 % (32-34); Mean Corpuscular Volume 88 fl (84-94); Monocytes # (Auto) 0.6 K/mm3 (0.0-0.8); Monocytes % (Auto) 5.1 % (0.0-7.3); Platelet Count 185 K/mm3 (140-440); Red Blood Count 5.53 M/mm3 (3.65-5.03); Red Cell Distribution Width 13.9 % (13.2-15.2)
[2019-03-04 12:46] LABS: Alanine Aminotransferase 23 units/L (7-56); Albumin 4.3 g/dL (3.9-5); BUN/Creatinine Ratio 9; Blood Urea Nitrogen 10 mg/dL (9-20); Calcium 9.2 mg/dL (8.4-10.2); Hemolysis Index 13
[2019-03-04 12:50] LABS: Bacteria,Urine 1+ /HPF (Negative); Bilirubin,Urine NEG (Negative); Blood,Urine NEG (Negative); Color,Urine Amber (Yellow); Mucus,Urine 3+ /HPF; Urobilinogen,Urine < 2.0 mg/dL (<2.0)
[2019-03-04] MEDS ORDERED: MAGNESIUM SULFATE 1 GM in WATER FOR INJ (PF) 23 ML IV ONE (13:41)
[2019-03-04] MEDS ORDERED: MORPHINE IV ONE ×2 (13:41→16:22)
[2019-03-04] MEDS ORDERED: MAGNESIUM SULFATE 1 GM in NACL 0.9% 50 ML IV ONE (14:00)
--- NOTE | 2019-03-04 15:58 | Cat Scan Report ---
CT ABDOMEN AND PELVIS WITH CONTRAST HISTORY: epigastric pain n,v, hx of pancreatitis COMPARISON: 09/14/2018 TECHNIQUE: Axial CT images were obtained through the abdomen and pelvis after 100 cc of Omnipaque 300 intravenously. Sagittal and coronal reformatted images. All CT scans at this location are performed using CT dose reduction for ALARA by means of automated exposure control. FINDINGS: CT ABDOMEN: Lung Bases: Clear. Liver: Mild diffuse fatty infiltration. Biliary: No significant abnormality. Spleen: No significant abnormality. Unenlarged. Pancreas: The pancreas is mildly edematous. There is mild fluid surrounding the pancreas and extendin g into the left and right anterior pararenal spaces. There is a small fluid collection anterior to th e pancreatic tail measuring up to 3 cm which may represent a pseudocyst. Adrenals: No significant abnormality. Kidneys: No significant abnormality. Lymphatics: No lymphadenopathy. Vasculature: No significant abnormality. Bowel/Peritoneum: No significant abnormality. No free air. No free fluid. Normal appendix CT PELVIS: : No significant abnormality. Osseous Structures: No significant abnormality. Additional Findings: None IMPRESSION: Findings consistent with acute pancreatitis. Mild hepatic steatosis. Signer Name: Alhaji Valdivia Jr, MD Signed: 03/04/2019 3:53 PM Workstation Name: [id number]
[2019-03-04] MEDS ORDERED: DILAUDID IV ONE ×2 (16:24→18:30)
[2019-03-04] MEDS ORDERED: SODIUM CHLORIDE FLUSH SYRINGE 10 ML IV PRN (19:54)
--- NOTE | 2019-03-04 21:25 | History and Physical Report ---
History of Present Illness Date of examination: 03/04/19 Date of admission: 03/04/2019 Chief complaint: n/v, abdominal pain History of present illness: 58-year-old male with history of pancreatitis, hypertension, and EtOH abuse who presents to [facility] ED with complaints of diarrhea, nausea, emesis 3, and epigastric pain. Patient states that he had loose liquid stools for 2 days which has resolved and his stools are back to normal. He complains of epigastric pain accompanied by nausea and emesis 3 for the past day. He describes this pain as sharp and rates it 7/10. He has taken Goody with no relief. He admits to having specks of blood in his vomit, but denies elena hematemesis. Patient states that he his last drink was a month. Denies: fever, hemoptysis, hematochezia, melena, or abdominal trauma/ injury Past History Past Medical History: atrial fib, hypertension, other (pancreatitis) Past Surgical History: No surgical history Social history: other (former alcohol abuse; last drink one month ago) Family history: no significant family history Medications and Allergies Allergies Allergy/AdvReac Type Severity Reaction Status Date / Time No Known Allergies Allergy Verified 06/08/18 05:44 Home Medications Medication Instructions Recorded Confirmed Last Taken Type Lisinopril [Zestril TAB] 20 mg PO QDAY 06/08/18 09/14/18 Unknown History Active Meds: Active Medications Acetaminophen (Tylenol) 650 mg PO Q4H PRN PRN Reason: Pain MILD(1-3)/Fever >100.5/PENALOZA Dicyclomine HCl (Bentyl) 20 mg PO QID PRN PRN Reason: abdominal pain Enoxaparin Sodium (Lovenox) 40 mg SUB-Q QDAY AMBER Hydromorphone HCl (Dilaudid) 0.5 mg IV Q3H PRN PRN Reason: Pain , Severe (7-10) Sodium Chloride (Nacl 0.9% 1000 Ml) 1,000 mls @ 100 mls/hr IV DIRECT AMBER Lisinopril (Zestril) 20 mg PO QDAY AMBER Metoclopramide HCl (Reglan) 10 mg IV Q6H PRN PRN Reason: Nausea And Vomiting Miscellaneous Medication (Folic Acid [Folic Acid]) 0.4 mg PO QDAY AMBER Miscellaneous Medication (Thiamine Hcl [Vitamin B-1]) 100 mg PO DAILY [facility] Morphine Sulfate (Morphine) 2 mg IV Q4H PRN PRN Reason: Pain, Moderate (4-6) Ondansetron HCl (Zofran) 4 mg IV Q6H PRN PRN Reason: Nausea And Vomiting Sodium Chloride (Sodium Chloride Flush Syringe 10 Ml) 10 ml IV BID AMBER Sodium Chloride (Sodium Chloride Flush Syringe 10 Ml) 10 ml IV PRN PRN PRN Reason: LINE FLUSH Review of Systems All systems: negative Gastrointestinal: nausea, vomiting Exam - Physical Exam Narrative exam: Physical exam General appearance: No acute distress, alert and oriented 3, well-developed, well-nourished, adult male - EENT Eyes: Present: PERRL, EOM ENT: hearing intact, normal dentition - Neck Neck: Present: supple, normal ROM - Respiratory Respiratory effort: Non-labored Respiratory: CTA bilaterally - Cardiovascular Heart rate: 91 (bpm) Rhythm: SR Heart Sounds: Present: S1 & S2. Absent: rub, click - Extremities Extremities: no ischemia, pulses intact, - Peripheral Assessment Peripheral Pulses: within normal limits - Abdominal General gastrointestinal: soft, epigastric tenderness, no rebound or guarding, normal bowel sounds - Integumentary Integumentary: Present: warm, dry, - Musculoskeletal Musculoskeletal: able to move extremities x4 -Neurological Neurological: CN II-XII grossly intact - Psychiatric Psychiatric: cooperative - Constitutional Vitals: Temp Pulse Resp BP Pulse Ox 97.6 F 91 H 16 167/95 98 03/04/19 11:44 03/04/19 11:44 03/04/19 11:44 03/04/19 11:44 03/04/19 11:44 Results - Labs CBC & Chem 7: 03/04/19 12:00 03/04/19 12:00 Labs: Laboratory Last Values WBC 12.7 K/mm3 (4.5-11.0) H 03/04/19 12:00 RBC 5.53 M/mm3 (3.65-5.03) H 03/04/19 12:00 Hgb 16.3 gm/dl (11.8-15.2) H 03/04/19 12:00 Hct 48.9 % (35.5-45.6) H 03/04/19 12:00 MCV 88 fl (84-94) 03/04/19 12:00 MCH 29 pg (28-32) 03/04/19 12:00 MCHC 33 % (32-34) 03/04/19 12:00 RDW 13.9 % (13.2-15.2) 03/04/19 12:00 Plt Count 185 K/mm3 (140-440) 03/04/19 12:00 Lymph % (Auto) 11.9 % (13.4-35.0) L 03/04/19 12:00 [place] % (Auto) 5.1 % (0.0-7.3) 03/04/19 12:00 Eos % (Auto) 0.9 % (0.0-4.3) 03/04/19 12:00 Baso % (Auto) 0.6 % (0.0-1.8) 03/04/19 12:00 Lymph # 1.5 K/mm3 (1.2-5.4) 03/04/19 12:00 [place] # 0.6 K/mm3 (0.0-0.8) 03/04/19 12:00 Eos # 0.1 K/mm3 (0.0-0.4) 03/04/19 12:00 Baso # 0.1 K/mm3 (0.0-0.1) 03/04/19 12:00 Seg Neutrophils % 81.5 % (40.0-70.0) H 03/04/19 12:00 Seg Neutrophils # 10.3 K/mm3 (1.8-7.7) H 03/04/19 12:00 Sodium 136 mmol/L (137-145) L 03/04/19 12:00 Potassium 3.6 mmol/L (3.6-5.0) 03/04/19 12:00 Chloride 96.2 mmol/L (98-107) L 03/04/19 12:00 Carbon Dioxide 26 mmol/L (22-30) 03/04/19 12:00 17 mmol/L 03/04/19 12:00 BUN 10 mg/dL (9-20) 03/04/19 12:00 1.1 mg/dL (0.8-1.5) 03/04/19 12:00 Estimated GFR > 60 ml/min 03/04/19 12:00 9 % 03/04/19 12:00 Glucose 130 mg/dL (75-100) H 03/04/19 12:00 Calcium 9.2 mg/dL (8.4-10.2) 03/04/19 12:00 Magnesium 1.60 mg/dL (1.7-2.3) L 03/04/19 12:00 0.50 mg/dL (0.1-1.2) 03/04/19 12:00 AST 18 units/L (5-40) 03/04/19 12:00 ALT 23 units/L (7-56) 03/04/19 12:00 64 units/L (35-129) 03/04/19 12:00 7.5 g/dL (6.3-8.2) 03/04/19 12:00 4.3 g/dL (3.9-5) 03/04/19 12:00 1.3 % 03/04/19 12:00 719 units/L (13-60) H 03/04/19 12:00 Asmita (Yellow) 03/04/19 12:09 Clear (Clear) 03/04/19 12:09 6.0 (5.0-7.0) 03/04/19 12:09 Ur Specific [place] 1.041 (1.003-1.030) H 03/04/19 12:09 100 mg/dl mg/dL (Negative) 03/04/19 12:09 Neg mg/dL (Negative) 03/04/19 12:09 Tr mg/dL (Negative) 03/04/19 12:09 Neg (Negative) 03/04/19 12:09 Neg (Negative) 03/04/19 12:09 Neg (Negative) 03/04/19 12:09 < 2.0 mg/dL (<2.0) 03/04/19 12:09 Ur Leukocyte Esterase Neg (Negative) 03/04/19 12:09 3.0 /HPF (0.0-6.0) 03/04/19 12:09 4.0 /HPF (0.0-6.0) 03/04/19 12:09 U Epithel Cells (Auto) < 1.0 /HPF (0-13.0) 03/04/19 12:09 1+ /HPF (Negative) 09/13/19 12:09 3+ /HPF 03/04/19 12:09 - Imaging and Cardiology Imaging and Cardiology: CT ABDOMEN: Lung Bases: Clear. Liver: Mild diffuse fatty infiltration. Biliary: No significant abnormality. Spleen: No significant abnormality. Unenlarged. Pancreas: The pancreas is mildly edematous. There is mild fluid surrounding the pancreas and extending into the left and right anterior pararenal spaces. There is a small fluid collection anterior to the pancreatic tail measuring up to 3 cm which may represent a pseudocyst. Adrenals: No significant abnormality. Kidneys: No significant abnormality. Lymphatics: No lymphadenopathy. Vasculature: No significant abnormality. Bowel/Peritoneum: No significant abnormality. No free air. No free fluid. Normal appendix CT PELVIS: : No significant abnormality. Osseous Structures: No significant abnormality. Additional Findings: None IMPRESSION: Findings consistent with acute pancreatitis. Mild hepatic steatosis. Assessment and Plan Assessment and plan: 58-year-old male with history of pancreatitis, hypertension, and EtOH abuse who presents to [facility] ED with complaints of diarrhea for two days which has since resolved, nausea, emesis 3, and epigastric pain for the past day. Acute pancreatitis -Continue supportive -Pain mgmt -on IVF -Clear diet Leukocytosis -WBC 12.7 -Afebrile -likely inflammatory response to acute pancreatitis -Will continue to monitor CBC, if pt becomes febrile or shows s/s of infection will get cultures and start on empiric antibiotics Hypertension -Continue to monitor BP -Resume home antihypertensive meds to optimize BP -IV hydralazine when necessary Hx of Alcohol abuse -Reports last drink was one month ago DVT PPX - On Lovenox Dispo: Possible D/C tomorrow if symptoms improve Advance Directives: No VTE prophylaxis?: Chemical Plan of care discussed with patient/family: Yes
[2019-03-04] MEDS: DILAUDID IV PRN (22:56)
[2019-03-04] MEDS: NACL 0.9% 1000 ML 1,000 ML IV SCH (22:57)
[2019-03-04] MEDS: REGLAN IV PRN (22:57)
[2019-03-04] MEDS: SODIUM CHLORIDE FLUSH SYRINGE 10 ML IV SCH (23:09)
[2019-03-05] MEDS: MORPHINE IV PRN ×4 (02:36→20:46)
[2019-03-05] MEDS: BENTYL PO PRN (02:36)
[2019-03-05 05:23] LABS: Basophils % (Auto) 0.4 % (0.0-1.8); Eosinophils # (Auto) 0.1 K/mm3 (0.0-0.4); Eosinophils % (Auto) 1.1 % (0.0-4.3); Hematocrit 47.5 % (35.5-45.6); Lymphocytes # (Auto) 1.6 K/mm3 (1.2-5.4); Lymphocytes % (Auto) 14.3 % (13.4-35.0); Mean Corpuscular HGB Conc 34 % (32-34); Mean Corpuscular Volume 89 fl (84-94); Monocytes # (Auto) 0.6 K/mm3 (0.0-0.8); Monocytes % (Auto) 5.1 % (0.0-7.3); Platelet Count 186 K/mm3 (140-440); Red Blood Count 5.36 M/mm3 (3.65-5.03)
[2019-03-05 05:41] LABS: BUN/Creatinine Ratio 8; Blood Urea Nitrogen 7 mg/dL (9-20); Hemolysis Index 7
[2019-03-05] MEDS: NACL 0.9% 1000 ML 1,000 ML IV SCH ×2 (09:03→23:49)
[2019-03-05] MEDS: ZESTRIL PO SCH (09:06)
[2019-03-05] MEDS: VITAMIN B-1 PO SCH (09:07)
[2019-03-05] MEDS: FOLVITE PO SCH (09:07)
[2019-03-05] MEDS: LOVENOX SUB-Q SCH (09:07)
[2019-03-05] MEDS: SODIUM CHLORIDE FLUSH SYRINGE 10 ML IV SCH ×2 (09:08→22:28)
[2019-03-05] MEDS ORDERED: NON-FORMULARY (Folic Acid [Folic Acid] 0.4 MG) PO SCH (10:00)
[2019-03-05] MEDS ORDERED: THIAMINE HCL 100 MG PO SCH (10:00)
[2019-03-05] MEDS: ZOFRAN IV PRN ×2 (11:46→20:46)
[2019-03-05] MEDS: DILAUDID IV PRN ×3 (11:47→22:27)
--- NOTE | 2019-03-05 15:32 | Progress Note ---
Assessment and Plan Assessment and plan: 58-year-old male with history of pancreatitis, hypertension, and EtOH abuse who presents to [facility] ED with complaints of diarrhea for two days which has since resolved, nausea, emesis 3, and epigastric pain for the past day. Acute pancreatitis -Continue supportive -Pain mgmt -on IVF -Clear diet Lipase improving Poss pseudocyst Will consult GI for follow up Leukocytosis -WBC 12.7 -Afebrile -likely inflammatory response to acute pancreatitis -Will continue to monitor CBC, if pt becomes febrile or shows s/s of infection will get cultures and start on empiric antibiotics Hypertension -Continue to monitor BP -Resume home antihypertensive meds to optimize BP -IV hydralazine when necessary Hx of Alcohol abuse -Reports last drink was one month ago DVT PPX - On Lovenox History Interval history: Abdominal pain Hospitalist Physical - Physical exam Narrative exam: Gen: Not in acute distress, Lying in bed,obese HEENT: Normocephalic, atraumatic Neck: supple, no JVD Heart: S1 and S2 reg, no murmurs, rubs or gallop Lungs: Clear, no crackles, no rhonchi, no wheeze Abd: soft, Tender mid to upper abd, no rebound tenderness, normal BS, Ext: No edema, no clubbing, no cyanosis Neuro: Awake, alert, oriented X 3, no focal neurological signs - Constitutional Vitals: Temp Pulse Resp BP Pulse Ox 98.4 F 97 H 18 168/89 88 03/05/19 12:11 03/05/19 12:11 03/05/19 12:11 03/05/19 12:11 03/05/19 12:11 Results - Labs CBC & Chem 7: 03/05/19 04:06 03/05/19 04:06 Labs: Laboratory Last Values WBC 11.4 K/mm3 (4.5-11.0) H 03/05/19 04:06 RBC 5.36 M/mm3 (3.65-5.03) H 03/05/19 04:06 Hgb 16.0 gm/dl (11.8-15.2) H 03/05/19 04:06 Hct 47.5 % (35.5-45.6) H 03/05/19 04:06 MCV 89 fl (84-94) 03/05/19 04:06 MCH 30 pg (28-32) 03/05/19 04:06 MCHC 34 % (32-34) 03/05/19 04:06 RDW 14.0 % (13.2-15.2) 03/05/19 04:06 Plt Count 186 K/mm3 (140-440) 03/05/19 04:06 Lymph % (Auto) 14.3 % (13.4-35.0) 03/05/19 04:06 [place] % (Auto) 5.1 % (0.0-7.3) 03/05/19 04:06 Eos % (Auto) 1.1 % (0.0-4.3) 03/05/19 04:06 Baso % (Auto) 0.4 % (0.0-1.8) 03/05/19 04:06 Lymph # 1.6 K/mm3 (1.2-5.4) 03/05/19 04:06 [place] # 0.6 K/mm3 (0.0-0.8) 03/05/19 04:06 Eos # 0.1 K/mm3 (0.0-0.4) 03/05/19 04:06 Baso # 0.0 K/mm3 (0.0-0.1) 03/05/19 04:06 Seg Neutrophils % 79.1 % (40.0-70.0) H 03/05/19 04:06 Seg Neutrophils # 9.0 K/mm3 (1.8-7.7) H 03/05/19 04:06 Sodium 137 mmol/L (137-145) 03/05/19 04:06 Potassium 3.8 mmol/L (3.6-5.0) 03/05/19 04:06 Chloride 97.7 mmol/L (98-107) L 03/05/19 04:06 Carbon Dioxide 26 mmol/L (22-30) 03/05/19 04:06 17 mmol/L 03/05/19 04:06 BUN 7 mg/dL (9-20) L 03/05/19 04:06 0.9 mg/dL (0.8-1.5) 03/05/19 04:06 Estimated GFR > 60 ml/min 03/05/19 04:06 8 % 03/05/19 04:06 Glucose 134 mg/dL (75-100) H 03/05/19 04:06 Calcium 9.0 mg/dL (8.4-10.2) 03/05/19 04:06 Magnesium 1.60 mg/dL (1.7-2.3) L 03/04/19 12:00 0.50 mg/dL (0.1-1.2) 03/04/19 12:00 AST 18 units/L (5-40) 03/04/19 12:00 ALT 23 units/L (7-56) 03/04/19 12:00 64 units/L (35-129) 03/04/19 12:00 7.5 g/dL (6.3-8.2) 03/04/19 12:00 4.3 g/dL (3.9-5) 03/04/19 12:00 1.3 % 03/04/19 12:00 180 units/L (13-60) H 03/05/19 08:33 Asmita (Yellow) 03/04/19 12:09 Clear (Clear) 03/04/19 12:09 6.0 (5.0-7.0) 03/04/19 12:09 Ur Specific [place] 1.041 (1.003-1.030) H 03/04/19 12:09 100 mg/dl mg/dL (Negative) 03/04/19 12:09 Neg mg/dL (Negative) 03/04/19 12:09 Tr mg/dL (Negative) 03/04/19 12:09 Neg (Negative) 03/04/19 12:09 Neg (Negative) 03/04/19 12:09 Neg (Negative) 03/04/19 12:09 < 2.0 mg/dL (<2.0) 03/04/19 12:09 Ur Leukocyte Esterase Neg (Negative) 03/04/19 12:09 3.0 /HPF (0.0-6.0) 03/04/19 12:09 4.0 /HPF (0.0-6.0) 03/04/19 12:09 U Epithel Cells (Auto) < 1.0 /HPF (0-13.0) 03/04/19 12:09 1+ /HPF (Negative) 03/04/19 12:09 3+ /HPF 03/04/19 12:09 Active Medications - Current Medications Current Medications: Generic Name Dose Route Start Last Admin Trade Name Freq PRN Reason Stop Dose Admin Acetaminophen 650 mg 03/04/19 19:54 Tylenol PO Q4H PRN Pain MILD(1-3)/Fever >100.5/PENALOZA Dicyclomine HCl 20 mg 03/04/19 19:57 03/05/19 02:36 Bentyl PO 20 mg QID PRN Administration abdominal pain Enoxaparin Sodium 40 mg 03/05/19 10:00 03/05/19 09:07 Lovenox SUB-Q 40 mg QDAY AMBER Administration Folic Acid 0.5 mg 03/05/19 10:00 03/05/19 09:07 Folvite PO 0.5 mg DAILY AMBER Administration Hydralazine HCl 10 mg 03/04/19 21:27 Apresoline IV Q4HR PRN Blood Pressure Hydromorphone HCl 0.5 mg 03/04/19 19:54 03/05/19 11:47 Dilaudid IV 0.5 mg Q3H PRN Administration Pain , Severe (7-10) Sodium Chloride 1,000 mls @ 100 mls/hr 03/04/19 20:00 03/05/19 09:03 Nacl 0.9% 1000 Ml IV 100 mls/hr DIRECT AMBER Administration Lisinopril 20 mg 03/05/19 10:00 03/05/19 09:06 Zestril PO 20 mg QDAY AMBER Administration Metoclopramide HCl 10 mg 03/04/19 19:54 03/04/19 22:57 Reglan IV 10 mg Q6H PRN Administration Nausea And Vomiting Morphine Sulfate 2 mg 03/04/19 19:54 03/05/19 15:07 Morphine IV 2 mg Q4H PRN Administration Pain, Moderate (4-6) Ondansetron HCl 4 mg 03/04/19 19:54 03/05/19 11:46 Zofran IV 4 mg Q6H PRN Administration Nausea And Vomiting Sodium Chloride 10 ml 03/04/19 22:00 03/05/19 09:08 Sodium Chloride Flush Syringe 10 Ml IV 10 ml BID AMBER Administration Sodium Chloride 10 ml 03/04/19 19:54 Sodium Chloride Flush Syringe 10 Ml IV PRN PRN LINE FLUSH Thiamine HCl 100 mg 03/05/19 10:00 03/05/19 09:07 Vitamin B-1 PO 100 mg QDAY AMBER Administration
[2019-03-05] MEDS ORDERED: MAGNESIUM SULFATE 3 GM in NACL 0.9% 100 ML IV ONE (16:46)
[2019-03-05] MEDS: APRESOLINE IV PRN (19:49)
[2019-03-06] MEDS: REGLAN IV PRN (01:03)
[2019-03-06] MEDS: DILAUDID IV PRN ×6 (01:26→18:43)
[2019-03-06] MEDS: BENTYL PO PRN (01:26)
[2019-03-06 05:08] LABS: BUN/Creatinine Ratio 7; Blood Urea Nitrogen 7 mg/dL (9-20); Hemolysis Index 2
[2019-03-06] MEDS: ZOFRAN IV PRN (05:29)
[2019-03-06] MEDS: ZESTRIL PO SCH (09:32)
[2019-03-06] MEDS: LOVENOX SUB-Q SCH (09:33)
[2019-03-06] MEDS: VITAMIN B-1 PO SCH (09:33)
[2019-03-06] MEDS: FOLVITE PO SCH (09:33)
[2019-03-06] MEDS: SODIUM CHLORIDE FLUSH SYRINGE 10 ML IV SCH ×2 (09:34→21:28)
[2019-03-06] MEDS: NACL 0.9% 1000 ML 1,000 ML IV SCH ×2 (09:37→18:46)
--- NOTE | 2019-03-06 10:56 | Progress Note ---
Assessment and Plan Assessment and plan: 58-year-old male with history of pancreatitis, hypertension, and EtOH abuse who presents to [facility] ED with complaints of diarrhea for two days which has since resolved, nausea, emesis 3, and epigastric pain for the past day. Acute pancreatitis -Continue supportive -Pain mgmt -on IVF -Clear liquid diet Lipase improving Poss pseudocyst Will consult GI for follow up Leukocytosis -WBC 12.7 -Afebrile -likely inflammatory response to acute pancreatitis -Will continue to monitor CBC, if pt becomes febrile or shows s/s of infection will get cultures and start on empiric antibiotics Hypertension -Continue to monitor BP -Resume home antihypertensive meds to optimize BP -IV hydralazine when necessary Hx of Alcohol abuse -Reports last drink was one month ago DVT PPX - On Lovenox History Interval history: Abdominal pain Hospitalist Physical - Physical exam Narrative exam: Gen: Not in acute distress, Lying in bed,obese HEENT: Normocephalic, atraumatic Neck: supple, no JVD Heart: S1 and S2 reg, no murmurs, rubs or gallop Lungs: Clear, no crackles, no rhonchi, no wheeze Abd: soft, Tender mid to upper abd, no rebound tenderness, normal BS, Ext: No edema, no clubbing, no cyanosis Neuro: Awake, alert, oriented X 3, no focal neurological signs - Constitutional Vitals: Temp Pulse Resp BP Pulse Ox 98.6 F 88 16 149/100 94 03/06/19 04:06 03/06/19 04:06 03/06/19 05:59 03/06/19 09:32 03/06/19 04:06 Results - Labs CBC & Chem 7: 03/05/19 04:06 03/06/19 04:15 Labs: Laboratory Last Values WBC 11.4 K/mm3 (4.5-11.0) H 03/05/19 04:06 RBC 5.36 M/mm3 (3.65-5.03) H 03/05/19 04:06 Hgb 16.0 gm/dl (11.8-15.2) H 03/05/19 04:06 Hct 47.5 % (35.5-45.6) H 03/05/19 04:06 MCV 89 fl (84-94) 03/05/19 04:06 MCH 30 pg (28-32) 03/05/19 04:06 MCHC 34 % (32-34) 03/05/19 04:06 RDW 14.0 % (13.2-15.2) 03/05/19 04:06 Plt Count 186 K/mm3 (140-440) 03/05/19 04:06 Lymph % (Auto) 14.3 % (13.4-35.0) 03/05/19 04:06 [place] % (Auto) 5.1 % (0.0-7.3) 03/05/19 04:06 Eos % (Auto) 1.1 % (0.0-4.3) 03/05/19 04:06 Baso % (Auto) 0.4 % (0.0-1.8) 03/05/19 04:06 Lymph # 1.6 K/mm3 (1.2-5.4) 03/05/19 04:06 [place] # 0.6 K/mm3 (0.0-0.8) 03/05/19 04:06 Eos # 0.1 K/mm3 (0.0-0.4) 03/05/19 04:06 Baso # 0.0 K/mm3 (0.0-0.1) 03/05/19 04:06 Seg Neutrophils % 79.1 % (40.0-70.0) H 03/05/19 04:06 Seg Neutrophils # 9.0 K/mm3 (1.8-7.7) H 03/05/19 04:06 Sodium 135 mmol/L (137-145) L 03/06/19 04:15 Potassium 3.9 mmol/L (3.6-5.0) 03/06/19 04:15 Chloride 95.3 mmol/L (98-107) L 03/06/19 04:15 Carbon Dioxide 26 mmol/L (22-30) 03/06/19 04:15 18 mmol/L 03/06/19 04:15 BUN 7 mg/dL (9-20) L 03/06/19 04:15 1.0 mg/dL (0.8-1.5) 03/06/19 04:15 Estimated GFR > 60 ml/min 03/06/19 04:15 7 % 03/06/19 04:15 Glucose 160 mg/dL (75-100) H 03/06/19 04:15 Calcium 9.0 mg/dL (8.4-10.2) 03/06/19 04:15 Magnesium 2.30 mg/dL (1.7-2.3) 03/06/19 04:15 0.50 mg/dL (0.1-1.2) 03/04/19 12:00 AST 18 units/L (5-40) 03/04/19 12:00 ALT 23 units/L (7-56) 03/04/19 12:00 64 units/L (35-129) 03/04/19 12:00 7.5 g/dL (6.3-8.2) 03/04/19 12:00 4.3 g/dL (3.9-5) 03/04/19 12:00 1.3 % 03/04/19 12:00 154 units/L (13-60) H 03/06/19 04:15 Asmita (Yellow) 03/04/19 12:09 Clear (Clear) 03/04/19 12:09 6.0 (5.0-7.0) 03/04/19 12:09 Ur Specific [place] 1.041 (1.003-1.030) H 03/04/19 12:09 100 mg/dl mg/dL (Negative) 03/04/19 12:09 Neg mg/dL (Negative) 03/04/19 12:09 Tr mg/dL (Negative) 03/04/19 12:09 Neg (Negative) 03/04/19 12:09 Neg (Negative) 03/04/19 12:09 Neg (Negative) 03/04/19 12:09 < 2.0 mg/dL (<2.0) 03/04/19 12:09 Ur Leukocyte Esterase Neg (Negative) 03/04/19 12:09 3.0 /HPF (0.0-6.0) 03/04/19 12:09 4.0 /HPF (0.0-6.0) 03/04/19 12:09 U Epithel Cells (Auto) < 1.0 /HPF (0-13.0) 03/04/19 12:09 1+ /HPF (Negative) 03/04/19 12:09 3+ /HPF 03/04/19 12:09 Active Medications - Current Medications Current Medications: Generic Name Dose Route Start Last Admin Trade Name Freq PRN Reason Stop Dose Admin Acetaminophen 650 mg 03/04/19 19:54 Tylenol PO Q4H PRN Pain MILD(1-3)/Fever >100.5/PENALOZA Dicyclomine HCl 20 mg 03/04/19 19:57 03/06/19 01:26 Bentyl PO 20 mg QID PRN Administration abdominal pain Enoxaparin Sodium 40 mg 03/05/19 10:00 03/06/19 09:33 Lovenox SUB-Q 40 mg QDAY AMBER Administration Folic Acid 0.5 mg 03/05/19 10:00 03/06/19 09:33 Folvite PO 0.5 mg DAILY AMBER Administration Hydralazine HCl 10 mg 03/04/19 21:27 03/05/19 19:49 Apresoline IV 10 mg Q4HR PRN Administration Blood Pressure Hydromorphone HCl 0.5 mg 03/04/19 19:54 03/06/19 09:33 Dilaudid IV 0.5 mg Q3H PRN Administration Pain , Severe (7-10) Sodium Chloride 1,000 mls @ 100 mls/hr 03/04/19 20:00 03/06/19 09:37 Nacl 0.9% 1000 Ml IV 100 mls/hr DIRECT AMBER Administration Lisinopril 20 mg 03/05/19 10:00 03/06/19 09:32 Zestril PO 20 mg QDAY AMBER Administration Metoclopramide HCl 10 mg 03/04/19 19:54 03/06/19 01:03 Reglan IV 10 mg Q6H PRN Administration Nausea And Vomiting Morphine Sulfate 2 mg 03/04/19 19:54 03/05/19 20:46 Morphine IV 2 mg Q4H PRN Administration Pain, Moderate (4-6) Ondansetron HCl 4 mg 03/04/19 19:54 03/06/19 05:29 Zofran IV 4 mg Q6H PRN Administration Nausea And Vomiting Sodium Chloride 10 ml 03/04/19 22:00 03/06/19 09:34 Sodium Chloride Flush Syringe 10 Ml IV 10 ml BID AMBER Administration Sodium Chloride 10 ml 03/04/19 19:54 Sodium Chloride Flush Syringe 10 Ml IV PRN PRN LINE FLUSH Thiamine HCl 100 mg 03/05/19 10:00 03/06/19 09:33 Vitamin B-1 PO 100 mg QDAY AMBER Administration
--- NOTE | 2019-03-06 18:19 | Gastroenterology Consultation ---
History of Present Illness - Reason for Consult Consult date: 03/06/19 Pancreatitis/Hematemesis Requesting physician: BRUNILDA MILLER - History of Present Illness The patient is admitted for a recurrent flare of acute pancreatitis He has no hx of chronic pancreatitis, though the current CT does show a pseudocyst in the tail of the pancreas. He was admitted with epigastric pain and diarrhea (resolved) and emesis with traces of blood present. There has been no melena or hematochezia. He says his last EtOH was about a month ago. He denies other drugs, and does not take Rx medications except lisinopril. He has not had an US of the gallbladder, nor has there been a lipid panel. He has no family hx of pancreatitis. He was not on antiacid therapy. Past History Past Medical History: atrial fib, hypertension, other (pancreatitis) Past Surgical History: No surgical history Social history: alcohol abuse Family history: no significant family history Medications and Allergies Allergies Allergy/AdvReac Type Severity Reaction Status Date / Time No Known Allergies Allergy Verified 06/08/18 05:44 Home Medications Medication Instructions Recorded Confirmed Last Taken Type Lisinopril [Zestril TAB] 20 mg PO QDAY 06/08/18 03/04/19 Unknown History Active Meds: Active Medications Acetaminophen (Tylenol) 650 mg PO Q4H PRN PRN Reason: Pain MILD(1-3)/Fever >100.5/PENALOZA Dicyclomine HCl (Bentyl) 20 mg PO QID PRN PRN Reason: abdominal pain Last Admin: 03/06/19 01:26 Dose: 20 mg Documented by: Enoxaparin Sodium (Lovenox) 40 mg SUB-Q QDAY [facility] Last Admin: 03/06/19 09:33 Dose: 40 mg Documented by: Folic Acid (Folvite) 0.5 mg PO DAILY [facility] Last Admin: 03/06/19 09:33 Dose: 0.5 mg Documented by: Hydralazine HCl (Apresoline) 10 mg IV Q4HR PRN PRN Reason: Blood Pressure Last Admin: 03/05/19 19:49 Dose: 10 mg Documented by: Hydromorphone HCl (Dilaudid) 0.5 mg IV Q3H PRN PRN Reason: Pain , Severe (7-10) Last Admin: 03/06/19 15:40 Dose: 0.5 mg Documented by: Sodium Chloride (Nacl 0.9% 1000 Ml) 1,000 mls @ 100 mls/hr IV DIRECT [facility] Last Admin: 03/06/19 09:37 Dose: 100 mls/hr Documented by: Lisinopril (Zestril) 20 mg PO QDAY [facility] Last Admin: 03/06/19 09:32 Dose: 20 mg Documented by: Metoclopramide HCl (Reglan) 10 mg IV Q6H PRN PRN Reason: Nausea And Vomiting Last Admin: 03/06/19 01:03 Dose: 10 mg Documented by: Morphine Sulfate (Morphine) 2 mg IV Q4H PRN PRN Reason: Pain, Moderate (4-6) Last Admin: 03/05/19 20:46 Dose: 2 mg Documented by: Ondansetron HCl (Zofran) 4 mg IV Q6H PRN PRN Reason: Nausea And Vomiting Last Admin: 03/06/19 05:29 Dose: 4 mg Documented by: Sodium Chloride (Sodium Chloride Flush Syringe 10 Ml) 10 ml IV BID [facility] Last Admin: 03/06/19 09:34 Dose: 10 ml Documented by: Sodium Chloride (Sodium Chloride Flush Syringe 10 Ml) 10 ml IV PRN PRN PRN Reason: LINE FLUSH Thiamine HCl (Vitamin B-1) 100 mg PO QDAY [facility] Last Admin: 03/06/19 09:33 Dose: 100 mg Documented by: I HAVE REVIEWED AND RECONCILED HOME MEDICATIONS Review of Systems - Review of Systems All systems: negative (as noted in the HPI.) Exam - Constitutional Vital Signs: Temp Pulse Resp BP Pulse Ox 97.9 F 73 18 153/104 99 03/06/19 17:05 03/06/19 17:05 03/06/19 17:05 03/06/19 17:05 03/06/19 17:05 General appearance: no acute distress - EENT Eyes: PERRL, EOM intact ENT: hearing intact, clear oral mucosa, dentition normal, no thrush - Neck Neck: supple, normal ROM - Respiratory Respiratory effort: normal Respiratory: bilateral: CTA - Cardiovascular Rhythm: regular Heart Sounds: Present: S1 & S2 Extremities: no ischemia, No edema - Gastrointestinal General gastrointestinal: Present: soft, tender (Minimal in epigastric/periumbilical region), non-distended - Integumentary Integumentary: Present: clear, warm, dry - Neurologic Neurological: alert and oriented x3 - Labs CBC & Chem 7: 03/05/19 04:06 03/06/19 04:15 Lab Results: Laboratory Results - last 24 hr 03/06/19 04:15 Sodium 135 L Potassium 3.9 Chloride 95.3 L Carbon Dioxide 26 Anion Gap 18 BUN 7 L Creatinine 1.0 Estimated GFR > 60 BUN/Creatinine Ratio 7 Glucose 160 H Calcium 9.0 Magnesium 2.30 Lipase 154 H Assessment and Plan - Patient Problems (1) Recurrent acute pancreatitis Current Visit: Yes Status: Acute Plan to address problem: - Recent EtOH use, and likely causative (may be remitting/relapsing course) but will r/o gallstones and lipids as a cause. - May also be related to lisinopril, but this would be rare (and lipase improved despite daily use in last 2 days). - Will advance diet as lipase almost WNL. - Continue current supportive care.
[2019-03-06] MEDS: MORPHINE IV PRN (21:27)
[2019-03-07] MEDS: DILAUDID IV PRN ×7 (00:57→22:35)
[2019-03-07] MEDS: REGLAN IV PRN (00:58)
[2019-03-07] MEDS: NACL 0.9% 1000 ML 1,000 ML IV SCH ×2 (03:21→14:58)
[2019-03-07 05:36] LABS: Chol/HDL Ratio 4.72 %
[2019-03-07] MEDS: BENTYL PO PRN (08:32)
--- NOTE | 2019-03-07 10:22 | Ultrasound Report ---
LIMITED RUQ ABDOMINAL ULTRASOUND INDICATION: pancreatitis. COMPARISON: CT abdomen pelvis dated 03/04/2019. FINDINGS: Pancreas: Visualized portions show no significant abnormality. Abdominal Aorta: No significant abnormality. IVC: No significant abnormality. Liver: The liver measures 16.9 cm in length. No significant abnormality. Normal hepatopedal blood fl ow in the main portal vein. Gallbladder: No significant abnormality. Bile ducts: No significant abnormality. Common bile duct measures 3.6 mm. Right kidney: No significant abnormality visualized.. Free fluid: None. Additional Findings: None. IMPRESSION: Unremarkable right upper quadrant ultrasound.. Signer Name: Alhaji Valdivia Jr, MD Signed: 03/07/2019 10:18 AM Workstation Name: [id number]
[2019-03-07] MEDS: LOVENOX SUB-Q SCH (10:41)
[2019-03-07] MEDS: ZESTRIL PO SCH (10:41)
[2019-03-07] MEDS: FOLVITE PO SCH (10:41)
[2019-03-07] MEDS: VITAMIN B-1 PO SCH (10:41)
[2019-03-07] MEDS: SODIUM CHLORIDE FLUSH SYRINGE 10 ML IV SCH (10:42)
--- NOTE | 2019-03-07 11:08 | Gastroenterology Progress Note ---
Assessment and Plan (1) Recurrent acute pancreatitis Current Visit: Yes Status: Acute Plan to address problem: -temp 100.1 -WBC 11.4- 03/05 -LFTs WNL -lipase 106-trending down -triglycerides 181 -CT showed acute pancreatitis and mild hepatic steatosis -abd U/S unremarkable (no gallstones) -etiology-most likely 2/2 ETOH -clinically, patient reports continued abd pain w/o improvement today. No N/V. Tolerating small amount of liquids. -pain medication adjusted per hospitalist -continue full liquids for now -continue to trend labs (CRP in am) and supportive care -alcohol cessation discussed with patient -will follow Subjective Date of service: 03/07/19 Principal diagnosis: pancreatitis Interval history: Patient up walking around the room this afternoon c/o continued abd pain w/o improvement. No N/v. Tolerating small amount of liquids. Objective - Constitutional Vitals: Temp Pulse Resp BP Pulse Ox 98.3 F 78 16 183/107 100 03/07/19 10:33 03/07/19 10:41 03/07/19 10:33 03/07/19 10:41 03/07/19 10:33 General appearance: mild distress - EENT Eyes: PERRL, EOM intact ENT: hearing intact - Respiratory Respiratory effort: normal - Cardiovascular Rhythm: regular - Gastrointestinal General gastrointestinal: Present: soft, tender, non-distended, normal bowel sounds - Neurologic Neurological: alert and oriented x3 - Labs CBC & Chem 7: 03/05/19 04:06 03/06/19 04:15 Labs: Laboratory Results - last 24 hr 03/07/19 03/07/19 04:47 04:47 Triglycerides 181 H Cholesterol 156 LDL Cholesterol Direct 106 HDL Cholesterol 33 L Cholesterol/HDL Ratio 4.72 Lipase 106 H
[2019-03-07] MEDS: APRESOLINE IV PRN (13:38)
--- NOTE | 2019-03-07 13:55 | Progress Note ---
Assessment and Plan Assessment and plan: Patient is 58-year-old male with history of pancreatitis, hypertension, and EtOH abuse who presents to [facility] with complaints of diarrhea, nausea, emesis 3, and epigastric pain. Patient states that he had loose liquid stools for 2 days which has resolved and his stools are back to normal. He complains of epigastric pain accompanied by nausea and emesis 3 . Patient states that he his last drink was a month. he was seen and evaluated in Emergency Department. CT Abdomen revea led acute pancreatitis with possible pseudocyst. He was NPO, iv fluids, narcotics. He was evaluated by GI physician. Ultrasound was negative for gallstones. Today had fever of 100.1 and blood cultures drawn. GI has advanced diet. Poss dc in 1-2 days if less pain, tolerates diet and if no more fever. Acute pancreatitis -Continue supportive care -Pain mgmt -on IVF -Diet advanced today Lipase improving Poss pseudocyst GI following up Leukocytosis -WBC 12.7 on admission,immproved -likely inflammatory response to acute pancreatitis -Will continue to monitor CBC Fever of 100.1 today blood cultures X 2 If fever recurs may consider antibiotics. Hypertension -Continue to monitor BP -Resume home antihypertensive meds to optimize BP -IV hydralazine when necessary Hx of Alcohol abuse -Reports last drink was one month ago DVT PPX - On Lovenox History Interval history: Still having abdominal pain asking for more pain meds Hospitalist Physical - Physical exam Narrative exam: Gen: Not in acute distress, Lying in bed,obese HEENT: Normocephalic, atraumatic Neck: supple, no JVD Heart: S1 and S2 reg, no murmurs, rubs or gallop Lungs: Clear, no crackles, no rhonchi, no wheeze Abd: soft, Tender mid to upper abd, no rebound tenderness, normal BS, Ext: No edema, no clubbing, no cyanosis Neuro: Awake, alert, oriented X 3, no focal neurological signs - Constitutional Vitals: Temp Pulse Resp BP Pulse Ox 100.1 F H 88 16 183/109 99 03/07/19 13:30 03/07/19 13:38 03/07/19 13:30 03/07/19 13:38 03/07/19 13:30 Results - Labs CBC & Chem 7: 03/05/19 04:06 03/06/19 04:15 Labs: Laboratory Last Values WBC 11.4 K/mm3 (4.5-11.0) H 03/05/19 04:06 RBC 5.36 M/mm3 (3.65-5.03) H 03/05/19 04:06 Hgb 16.0 gm/dl (11.8-15.2) H 03/05/19 04:06 Hct 47.5 % (35.5-45.6) H 03/05/19 04:06 MCV 89 fl (84-94) 03/05/19 04:06 MCH 30 pg (28-32) 03/05/19 04:06 MCHC 34 % (32-34) 03/05/19 04:06 RDW 14.0 % (13.2-15.2) 03/05/19 04:06 Plt Count 186 K/mm3 (140-440) 03/05/19 04:06 Lymph % (Auto) 14.3 % (13.4-35.0) 03/05/19 04:06 [place] % (Auto) 5.1 % (0.0-7.3) 03/05/19 04:06 Eos % (Auto) 1.1 % (0.0-4.3) 03/05/19 04:06 Baso % (Auto) 0.4 % (0.0-1.8) 03/05/19 04:06 Lymph # 1.6 K/mm3 (1.2-5.4) 03/05/19 04:06 [place] # 0.6 K/mm3 (0.0-0.8) 03/05/19 04:06 Eos # 0.1 K/mm3 (0.0-0.4) 03/05/19 04:06 Baso # 0.0 K/mm3 (0.0-0.1) 03/05/19 04:06 Seg Neutrophils % 79.1 % (40.0-70.0) H 03/05/19 04:06 Seg Neutrophils # 9.0 K/mm3 (1.8-7.7) H 03/05/19 04:06 Sodium 135 mmol/L (137-145) L 03/06/19 04:15 Potassium 3.9 mmol/L (3.6-5.0) 03/06/19 04:15 Chloride 95.3 mmol/L (98-107) L 03/06/19 04:15 Carbon Dioxide 26 mmol/L (22-30) 03/06/19 04:15 18 mmol/L 03/06/19 04:15 BUN 7 mg/dL (9-20) L 03/06/19 04:15 1.0 mg/dL (0.8-1.5) 03/06/19 04:15 Estimated GFR > 60 ml/min 03/06/19 04:15 7 % 03/06/19 04:15 Glucose 160 mg/dL (75-100) H 03/06/19 04:15 Calcium 9.0 mg/dL (8.4-10.2) 03/06/19 04:15 Magnesium 2.30 mg/dL (1.7-2.3) 03/06/19 04:15 0.50 mg/dL (0.1-1.2) 03/04/19 12:00 AST 18 units/L (5-40) 03/04/19 12:00 ALT 23 units/L (7-56) 03/04/19 12:00 64 units/L (35-129) 03/04/19 12:00 7.5 g/dL (6.3-8.2) 03/04/19 12:00 4.3 g/dL (3.9-5) 03/04/19 12:00 1.3 % 03/04/19 12:00 Triglycerides 181 mg/dL (2-149) H 03/07/19 04:47 Cholesterol 156 mg/dL (50-199) 03/07/19 04:47 106 mg/dL (50-130) 03/07/19 04:47 33 mg/dL (40-59) L 03/07/19 04:47 4.72 % 03/07/19 04:47 106 units/L (13-60) H 03/07/19 04:47 Asmita (Yellow) 03/04/19 12:09 Clear (Clear) 03/04/19 12:09 6.0 (5.0-7.0) 03/04/19 12:09 Ur Specific [place] 1.041 (1.003-1.030) H 03/04/19 12:09 100 mg/dl mg/dL (Negative) 03/04/19 12:09 Neg mg/dL (Negative) 03/04/19 12:09 Tr mg/dL (Negative) 03/04/19 12:09 Neg (Negative) 03/04/19 12:09 Neg (Negative) 03/04/19 12:09 Neg (Negative) 03/04/19 12:09 < 2.0 mg/dL (<2.0) 03/04/19 12:09 Ur Leukocyte Esterase Neg (Negative) 03/04/19 12:09 3.0 /HPF (0.0-6.0) 03/04/19 12:09 4.0 /HPF (0.0-6.0) 03/04/19 12:09 U Epithel Cells (Auto) < 1.0 /HPF (0-13.0) 03/04/19 12:09 1+ /HPF (Negative) 03/04/19 12:09 3+ /HPF 03/04/19 12:09 Active Medications - Current Medications Current Medications: Generic Name Dose Route Start Last Admin Trade Name Freq PRN Reason Stop Dose Admin Acetaminophen 650 mg 03/04/19 19:54 Tylenol PO Q4H PRN Pain MILD(1-3)/Fever >100.5/PENALOZA Dicyclomine HCl 20 mg 03/04/19 19:57 03/07/19 08:32 Bentyl PO 20 mg QID PRN Administration abdominal pain Enoxaparin Sodium 40 mg 03/05/19 10:00 03/07/19 10:41 Lovenox SUB-Q 40 mg QDAY AMBER Administration Folic Acid 0.5 mg 03/05/19 10:00 03/07/19 10:41 Folvite PO 0.5 mg DAILY AMBER Administration Hydralazine HCl 10 mg 03/04/19 21:27 03/07/19 13:38 Apresoline IV 10 mg Q4HR PRN Administration Blood Pressure Hydromorphone HCl 1 mg 03/07/19 13:54 Dilaudid IV Q4H PRN Pain , Severe (7-10) Sodium Chloride 1,000 mls @ 100 mls/hr 03/04/19 20:00 03/07/19 03:21 Nacl 0.9% 1000 Ml IV 100 mls/hr DIRECT AMBER Administration Lisinopril 20 mg 03/05/19 10:00 03/07/19 10:41 Zestril PO 20 mg QDAY AMBER Administration Metoclopramide HCl 10 mg 03/04/19 19:54 03/07/19 00:58 Reglan IV 10 mg Q6H PRN Administration Nausea And Vomiting Morphine Sulfate 2 mg 03/04/19 19:54 03/06/19 21:27 Morphine IV 2 mg Q4H PRN Administration Pain, Moderate (4-6) Ondansetron HCl 4 mg 03/04/19 19:54 03/06/19 05:29 Zofran IV 4 mg Q6H PRN Administration Nausea And Vomiting Sodium Chloride 10 ml 03/04/19 22:00 03/07/19 10:42 Sodium Chloride Flush Syringe 10 Ml IV 10 ml BID AMBER Administration Sodium Chloride 10 ml 03/04/19 19:54 Sodium Chloride Flush Syringe 10 Ml IV PRN PRN LINE FLUSH Thiamine HCl 100 mg 03/05/19 10:00 03/07/19 10:41 Vitamin B-1 PO 100 mg QDAY AMBER Administration Nutrition/Malnutrition Assess - Dietary Evaluation Nutrition/Malnutrition Findings: Nutrition Notes Start: 03/07/19 12:48 Freq: Status: Active Protocol: Document 03/07/19 12:48 OH (Rec: 03/07/19 12:50 OH [id number]) Nutrition Notes Need for Assessment generated from: Low BMI Initial or Follow up Brief Note Other Pertinent Diagnosis hx ETOH abuse; pancreatitis Current Diet full liquid Labs/Tests Na 135 K+ 3.9 Height 6 ft 2 in Weight 126 kg [place] Body Weight (kg) 86.36 BMI 35.6 Weight Status Obese Subjective/Other Information Pt flagged for low BMI. Pt. weighed by functional tester typewriters. Pt. with BMI >30. Nutrition Intervention Revisit per MD consult or patient Sign Off request:
[2019-03-08] MEDS: SODIUM CHLORIDE FLUSH SYRINGE 10 ML IV SCH ×2 (01:16→10:56)
[2019-03-08] MEDS: NACL 0.9% 1000 ML 1,000 ML IV SCH ×2 (02:44→11:40)
[2019-03-08] MEDS: REGLAN IV PRN (02:48)
[2019-03-08] MEDS: DILAUDID IV PRN ×5 (02:48→19:51)
[2019-03-08] MEDS: TYLENOL PO PRN (04:36)
[2019-03-08] MEDS: BENTYL PO PRN ×3 (04:36→20:11)
[2019-03-08] MEDS: APRESOLINE IV PRN (05:47)
[2019-03-08 08:40] LABS: Basophils # (Auto) 0.1 K/mm3 (0.0-0.1); Basophils % (Auto) 0.8 % (0.0-1.8); Eosinophils # (Auto) 0.2 K/mm3 (0.0-0.4); Eosinophils % (Auto) 1.7 % (0.0-4.3); Hematocrit 46.8 % (35.5-45.6); Hemoglobin 15.8 gm/dl (11.8-15.2); Lymphocytes # (Auto) 1.9 K/mm3 (1.2-5.4); Lymphocytes % (Auto) 20.8 % (13.4-35.0); Mean Corpuscular HGB Conc 34 % (32-34); Mean Corpuscular Volume 88 fl (84-94); Monocytes # (Auto) 0.7 K/mm3 (0.0-0.8); Monocytes % (Auto) 7.6 % (0.0-7.3); Platelet Count 240 K/mm3 (140-440); Red Blood Count 5.34 M/mm3 (3.65-5.03); Red Cell Distribution Width 13.8 % (13.2-15.2)
[2019-03-08 09:07] LABS: Alanine Aminotransferase 18 units/L (7-56); Albumin 4.6 g/dL (3.9-5); BUN/Creatinine Ratio 9; Blood Urea Nitrogen 7 mg/dL (9-20); Calcium 9.5 mg/dL (8.4-10.2); Hemolysis Index 9
[2019-03-08] MEDS: LOVENOX SUB-Q SCH (10:55)
[2019-03-08] MEDS: ZESTRIL PO SCH (10:55)
[2019-03-08] MEDS: FOLVITE PO SCH (10:55)
[2019-03-08] MEDS: VITAMIN B-1 PO SCH (11:44)
--- NOTE | 2019-03-08 12:29 | Gastroenterology Progress Note ---
Assessment and Plan (1) Recurrent acute pancreatitis Current Visit: Yes Status: Acute Plan to address problem: -afebrile -WBC now WNL (9.0) -LFTs and CRP WNL -lipase 85-trending down -triglycerides 181 -CT showed acute pancreatitis and mild hepatic steatosis -abd U/S unremarkable (no gallstones) -etiology-most likely 2/2 ETOH -clinically, patient's abd pain is slowly improving. No N/V. Tolerated liquids yesterday. -advance diet as tolerated to regular -transition pain medication to PO -continue to trend labs and supportive care -alcohol cessation discussed with patient -once tolerating diet, okay to be d/c per GI standpoint with f/u in clinic -no further recommendations at this time, will sign off. Please call if needed. Subjective Date of service: 03/08/19 Principal diagnosis: pancreatitis Interval history: No acute distress. Objective - Constitutional Vitals: Temp Pulse Resp BP Pulse Ox 97.7 F 89 18 161/106 99 03/08/19 10:54 03/08/19 10:55 03/08/19 10:54 03/08/19 10:55 03/08/19 10:54 General appearance: no acute distress - EENT Eyes: PERRL, EOM intact ENT: hearing intact - Respiratory Respiratory effort: normal Respiratory: bilateral: CTA - Cardiovascular Rhythm: regular - Gastrointestinal General gastrointestinal: Present: soft, tender (slight TTP), non-distended, normal bowel sounds - Neurologic Neurological: alert and oriented x3 - Labs CBC & Chem 7: 03/08/19 08:22 03/08/19 08:22 Labs: Laboratory Results - last 24 hr 03/08/19 03/08/19 08:22 08:22 WBC 9.0 RBC 5.34 H Hgb 15.8 H Hct 46.8 H MCV 88 MCH 30 MCHC 34 RDW 13.8 Plt Count 240 Lymph % (Auto) 20.8 [place] % (Auto) 7.6 H Eos % (Auto) 1.7 Baso % (Auto) 0.8 Lymph # 1.9 [place] # 0.7 Eos # 0.2 Baso # 0.1 Seg Neutrophils % 69.1 Seg Neutrophils # 6.2 Sodium 137 Potassium 3.7 Chloride 98.0 Carbon Dioxide 24 Anion Gap 19 BUN 7 L Creatinine 0.8 Estimated GFR > 60 BUN/Creatinine Ratio 9 Glucose 113 H Calcium 9.5 Total Bilirubin 0.40 AST 16 ALT 18 Alkaline Phosphatase 59 C-Reactive Protein 0.60 Total Protein 7.8 Albumin 4.6 Albumin/Globulin Ratio 1.4 Lipase 85 H
--- NOTE | 2019-03-08 13:07 | Progress Note ---
Assessment and Plan Assessment and plan: Acute pancreatitis -Continue supportive care -Pain mgmt -on IVF -Diet advanced yesterday but patient did not tolerate Lipase improving Poss pseudocyst GI following up Leukocytosis -WBC 12.7 on admission,improved to normal at 9.0 today -likely inflammatory response to acute pancreatitis -Will continue to monitor CBC Fever of 100.1 yesterday blood cultures X 2 If fever recurs may consider antibiotics. Hypertension -Continue to monitor BP -Resume home antihypertensive meds to optimize BP -IV hydralazine when necessary Hx of Alcohol abuse -Reports last drink was one month ago DVT PPX - On Lovenox History Interval history: Patient is 58-year-old male with history of pancreatitis, hypertension, and EtOH abuse who presents to [facility] ED with complaints of diarrhea, nausea, emesis 3, and epigastric pain. Patient states that he had loose liquid stools for 2 days which has resolved and his stools are back to normal. He complains of epigastric pain accompanied by nausea and emesis 3 . Patient states that he his last drink was a month. he was seen and evaluated in Emergency Department. CT Abdomen revealed acute pancreatitis with possible pseudocyst. He was NPO, iv fluids, narcotics. He was evaluated by GI physician. Ultrasound was negative for gallstones. Today had fever of 100.1 and blood cultures drawn. GI has advanced diet. Poss dc in 1-2 days if less pain, tolerates diet and if no more fever. Patient attempted to eat regular diet yesterday and had some abdominal pain as well as nausea and vomiting. Hospitalist Physical - Constitutional Vitals: Temp Pulse Resp BP Pulse Ox 97.7 F 89 18 161/106 99 03/08/19 10:54 03/08/19 10:55 03/08/19 10:54 03/08/19 10:55 03/08/19 10:54 General appearance: Present: no acute distress, well-nourished - EENT Eyes: Present: PERRL, EOM intact ENT: hearing intact, clear oral mucosa, dentition normal - Neck Neck: Present: supple, normal ROM - Respiratory Respiratory effort: normal Respiratory: bilateral: CTA - Cardiovascular Rhythm: regular Heart Sounds: Present: S1 & S2. Absent: gallop, rub - Extremities Extremities: no ischemia, No edema, Full ROM - Abdominal General gastrointestinal: soft, non-tender, non-distended, normal bowel sounds - Integumentary Integumentary: Present: clear, warm, dry - Neurologic Neurologic: CNII-XII intact, moves all extremities Results - Labs CBC & Chem 7: 03/08/19 08:22 03/08/19 08:22 Labs: Laboratory Last Values WBC 9.0 K/mm3 (4.5-11.0) 03/08/19 08:22 RBC 5.34 M/mm3 (3.65-5.03) H 03/08/19 08:22 Hgb 15.8 gm/dl (11.8-15.2) H 03/08/19 08:22 Hct 46.8 % (35.5-45.6) H 03/08/19 08:22 MCV 88 fl (84-94) 03/08/19 08:22 MCH 30 pg (28-32) 03/08/19 08:22 MCHC 34 % (32-34) 03/08/19 08:22 RDW 13.8 % (13.2-15.2) 03/08/19 08:22 Plt Count 240 K/mm3 (140-440) 03/08/19 08:22 Lymph % (Auto) 20.8 % (13.4-35.0) 03/08/19 08:22 [place] % (Auto) 7.6 % (0.0-7.3) H 03/08/19 08:22 Eos % (Auto) 1.7 % (0.0-4.3) 03/08/19 08:22 Baso % (Auto) 0.8 % (0.0-1.8) 03/08/19 08:22 Lymph # 1.9 K/mm3 (1.2-5.4) 03/08/19 08:22 [place] # 0.7 K/mm3 (0.0-0.8) 03/08/19 08:22 Eos # 0.2 K/mm3 (0.0-0.4) 03/08/19 08:22 Baso # 0.1 K/mm3 (0.0-0.1) 03/08/19 08:22 Seg Neutrophils % 69.1 % (40.0-70.0) 03/08/19 08:22 Seg Neutrophils # 6.2 K/mm3 (1.8-7.7) 03/08/19 08:22 Sodium 137 mmol/L (137-145) 03/08/19 08:22 Potassium 3.7 mmol/L (3.6-5.0) 03/08/19 08:22 Chloride 98.0 mmol/L (98-107) 03/08/19 08:22 Carbon Dioxide 24 mmol/L (22-30) 03/08/19 08:22 19 mmol/L 03/08/19 08:22 BUN 7 mg/dL (9-20) L 03/08/19 08:22 0.8 mg/dL (0.8-1.5) 03/08/19 08:22 Estimated GFR > 60 ml/min 03/08/19 08:22 9 % 03/08/19 08:22 Glucose 113 mg/dL (75-100) H 03/08/19 08:22 Calcium 9.5 mg/dL (8.4-10.2) 03/08/19 08:22 Magnesium 2.30 mg/dL (1.7-2.3) 03/06/19 04:15 0.40 mg/dL (0.1-1.2) 03/08/19 08:22 AST 16 units/L (5-40) 03/08/19 08:22 ALT 18 units/L (7-56) 03/08/19 08:22 59 units/L (35-129) 03/08/19 08:22 0.60 mg/dL (0.00-1.30) 03/08/19 08:22 7.8 g/dL (6.3-8.2) 03/08/19 08:22 4.6 g/dL (3.9-5) 03/08/19 08:22 1.4 % 03/08/19 08:22 Triglycerides 181 mg/dL (2-149) H 03/07/19 04:47 Cholesterol 156 mg/dL (50-199) 03/07/19 04:47 106 mg/dL (50-130) 03/07/19 04:47 33 mg/dL (40-59) L 03/07/19 04:47 4.72 % 03/07/19 04:47 85 units/L (13-60) H 03/08/19 08:22 Asmita (Yellow) 03/04/19 12:09 Clear (Clear) 03/04/19 12:09 6.0 (5.0-7.0) 03/04/19 12:09 Ur Specific [place] 1.041 (1.003-1.030) H 03/04/19 12:09 100 mg/dl mg/dL (Negative) 03/04/19 12:09 Neg mg/dL (Negative) 03/04/19 12:09 Tr mg/dL (Negative) 03/04/19 12:09 Neg (Negative) 03/04/19 12:09 Neg (Negative) 03/04/19 12:09 Neg (Negative) 03/04/19 12:09 < 2.0 mg/dL (<2.0) 03/04/19 12:09 Ur Leukocyte Esterase Neg (Negative) 03/04/19 12:09 3.0 /HPF (0.0-6.0) 03/04/19 12:09 4.0 /HPF (0.0-6.0) 03/04/19 12:09 U Epithel Cells (Auto) < 1.0 /HPF (0-13.0) 03/04/19 12:09 1+ /HPF (Negative) 03/04/19 12:09 3+ /HPF 03/04/19 12:09 Active Medications - Current Medications Current Medications: Generic Name Dose Route Start Last Admin Trade Name Freq PRN Reason Stop Dose Admin Acetaminophen 650 mg 03/04/19 19:54 03/08/19 04:36 Tylenol PO 650 mg Q4H PRN Administration Pain MILD(1-3)/Fever >100.5/PENALOZA Dicyclomine HCl 20 mg 03/04/19 19:57 03/08/19 11:46 Bentyl PO 20 mg QID PRN Administration abdominal pain Enoxaparin Sodium 40 mg 03/05/19 10:00 03/08/19 10:55 Lovenox SUB-Q 40 mg QDAY AMBER Administration Folic Acid 0.5 mg 03/05/19 10:00 03/08/19 10:55 Folvite PO 0.5 mg DAILY AMBER Administration Hydralazine HCl 10 mg 03/04/19 21:27 03/08/19 05:47 Apresoline IV 10 mg Q4HR PRN Administration Blood Pressure Hydromorphone HCl 1 mg 03/07/19 13:54 03/08/19 11:40 Dilaudid IV 1 mg Q4H PRN Administration Pain , Severe (7-10) Sodium Chloride 1,000 mls @ 100 mls/hr 03/04/19 20:00 03/08/19 11:40 Nacl 0.9% 1000 Ml IV 100 mls/hr DIRECT AMBER Administration Lisinopril 20 mg 03/05/19 10:00 03/08/19 10:55 Zestril PO 20 mg QDAY AMBER Administration Metoclopramide HCl 10 mg 03/04/19 19:54 03/08/19 02:48 Reglan IV 10 mg Q6H PRN Administration Nausea And Vomiting Morphine Sulfate 2 mg 03/04/19 19:54 03/06/19 21:27 Morphine IV 2 mg Q4H PRN Administration Pain, Moderate (4-6) Ondansetron HCl 4 mg 03/04/19 19:54 03/06/19 05:29 Zofran IV 4 mg Q6H PRN Administration Nausea And Vomiting Sodium Chloride 10 ml 03/04/19 22:00 03/08/19 10:56 Sodium Chloride Flush Syringe 10 Ml IV 10 ml BID AMBER Administration Sodium Chloride 10 ml 03/04/19 19:54 Sodium Chloride Flush Syringe 10 Ml IV PRN PRN LINE FLUSH Thiamine HCl 100 mg 03/05/19 10:00 03/08/19 11:44 Vitamin B-1 PO 100 mg QDAY AMBER Administration Nutrition/Malnutrition Assess - Dietary Evaluation Nutrition/Malnutrition Findings: Nutrition Notes Start: 03/07/19 12:48 Freq: Status: Active Protocol: Document 03/07/19 12:48 OH (Rec: 03/07/19 12:50 OH [id number]) Nutrition Notes Need for Assessment generated from: Low BMI Initial or Follow up Brief Note Other Pertinent Diagnosis hx ETOH abuse; pancreatitis Current Diet full liquid Labs/Tests Na 135 K+ 3.9 Height 6 ft 2 in Weight 126 kg [place] Body Weight (kg) 86.36 BMI 35.6 Weight Status Obese Subjective/Other Information Pt flagged for low BMI. Pt. weighed by writer producer. Pt. with BMI >30. Nutrition Intervention Revisit per MD consult or patient Sign Off request:
[2019-03-09] MEDS: DILAUDID IV PRN ×3 (00:27→08:46)
[2019-03-09] MEDS: NACL 0.9% 1000 ML 1,000 ML IV SCH (00:27)
[2019-03-09] MEDS: SODIUM CHLORIDE FLUSH SYRINGE 10 ML IV SCH ×2 (00:28→10:28)
[2019-03-09] MEDS: BENTYL PO PRN (04:19)
[2019-03-09] MEDS: LOVENOX SUB-Q SCH (10:27)
[2019-03-09] MEDS: ZESTRIL PO SCH (10:27)
[2019-03-09] MEDS: FOLVITE PO SCH (10:28)
[2019-03-09] MEDS: VITAMIN B-1 PO SCH (10:29)
--- NOTE | 2019-03-09 11:12 | Discharge Summary ---
Providers - Providers Date of Admission: 03/07/19 10:05 Date of discharge: 03/09/19 Attending physician: ESTEPHANIA REYES 03/05/19 16:47 Consult to Physician [CONS] Routine Comment: Consulting Provider: YA CARRILLO Physician Instructions: Reason For Exam: Acute pancreatitis Primary care physician: RN FORENSIC Hospitalization Condition: Stable Pertinent studies: CT scan shows acute pancreatitis. Ultrasound unremarkable. Hospital course: History of present with left sided abdominal pain and leukocytosis. Found to be secondary to acute pancreatitis. Patient placed on bowel rest supportive care with IV fluids and antiemetics. Patient was located about alcohol cessation and this Reason for his pancreatitis patient has full understanding. Now able to tolerate meals after treatment. Lipase came down to normal patient stable to discharge. Disposition: - TO HOME OR SELFCARE - Discharge Diagnoses (1) Acute pancreatitis Status: Acute (2) EtOH dependence Status: Chronic Qualifiers: Substance use status: uncomplicated Qualified Code(s): F10.20 - Alcohol dependence, uncomplicated (3) HTN (hypertension) Status: Chronic Qualifiers: Hypertension type: essential hypertension Qualified Code(s): I10 - Essential (primary) hypertension Core Measure Documentation - Palliative Care Palliative Care/ Comfort Measures: Not Applicable - Core Measures Any of the following diagnoses?: history only Exam - Constitutional Vitals: Temp Pulse Resp BP Pulse Ox 98.4 F 62 20 156/87 100 03/09/19 06:04 03/09/19 10:27 03/09/19 08:50 03/09/19 10:27 03/09/19 06:04 General appearance: Present: no acute distress, well-nourished - EENT Eyes: Present: PERRL ENT: hearing intact, clear oral mucosa - Neck Neck: Present: supple, normal ROM - Respiratory Respiratory effort: normal Respiratory: bilateral: CTA - Cardiovascular Heart Sounds: Present: S1 & S2. Absent: rub, click - Extremities Extremities: pulses symmetrical, No edema Peripheral Pulses: within normal limits - Abdominal General gastrointestinal: Present: soft, non-tender, non-distended, normal bowel sounds Male genitourinary: Present: normal - Integumentary Integumentary: Present: clear, warm, dry - Musculoskeletal Musculoskeletal: gait normal, strength equal bilaterally - Psychiatric Psychiatric: appropriate mood/affect, intact judgment & insight - Neurologic Neurologic: CNII-XII intact, moves all extremities Plan Activity: no restrictions Weight Bearing Status: Full Weight Bearing Diet: low carbohydrate Follow up with: [facility] [Provider Group] - 3-5 Days PRIMARY CARE, [Primary Care Provider] - 3-5 Days Prescriptions: Dicyclomine [Bentyl] 20 mg PO QID PRN #60 tablet PRN Reason: abdominal pain Folic Acid [Folvite] 0.5 mg PO DAILY #30 tablet Thiamine [Vitamin B-1] 100 mg PO QDAY #30 tablet Lisinopril [Zestril TAB] 20 mg PO QDAY #30 tablet
[2019-03-09 12:08] VITALS: BP 148/79
[2019-03-09] MEDS: TYLENOL PO PRN (12:48)
== END 2019-03-09 13:35 | disposition home or self-care (01) | DRG 440 ==
LOC: ED 11:38 → 3A 19:54 → OBSVTOIN 03-07 10:05
PROVIDERS: ADMIT Internal Medicine; ATTEND Internal Medicine
DX: K85.90 Acute pancreatitis without necrosis or infection, unspecified (principal); I48.91 Unspecified atrial fibrillation; I10 Essential (primary) hypertension; D72.829 Elevated white blood cell count, unspecified; F10.20 Alcohol dependence, uncomplicated; Y90.9 Presence of alcohol in blood, level not specified; Z79.899 Other long term (current) drug therapy
CPT/HCPCS: 36415; 74177; 76705; 80048; 80053; 80061; 81001; 83690; 83735; 85025; 86038; 86140; 87040; 87116; 96361; 96365; 96375; G0378; J0360; J1170; J1650; J2270; J2405; J2765; J3475; J7030; Q9967